=== PATIENT | female | born 1930 | race Caucasian/White ===

== ENCOUNTER 2016-11-18 19:33 | Inpatient (IN) | payer MEDICARE, BC ==
[2016-11-18] MEDS ORDERED: Morphine INJ* 2 MG/ML 1 ML CARPUJECT IV ONE (20:23)
--- NOTE | 2016-11-18 20:31 | ED ---
Nick Puckett Claudia, scribed for Stanley Yañez MD on 11/18/16 at 1952 . Lower Extremity - HPI Summary HPI Summary: 86 year old female presents to the ED with left lower leg pain post mechanical fall down 3-4 steps at about 19:00 this evening. Pt denies fever and chills. Pt notes the pain as a 8/10. - History of Current Complaint Chief Complaint: EDExtremityLower Stated Complaint: LT LEG PAIN Time Seen by Provider: 11/18/16 19:46 Hx Obtained From: Patient Mechanism Of Injury: Fall From Height Of: - 3 steps Onset of Pain: Immediate Onset/Duration: Still Present Pain Intensity: 8 Pain Scale Used: 0-10 Numeric Location: Is Discrete @ - left lower leg Associated Signs And Symptoms: Positive: Other - No left hip pain. Negative: Knee Pain Aggravating Factor(s): Ambulation, Weight Bearing - Allergies/Home Medications Allergies/Adverse Reactions: Allergies Allergy/AdvReac Type Severity Reaction Status Date / Time No Known Allergies Allergy Verified 11/18/16 19:35 PMH/Surg Hx/FS Hx/Imm Hx Previously Healthy: Yes Endocrine/Hematology History: Denies: Hx Diabetes Cardiovascular History: Reports: Hx Hypertension History: Denies: Hx Acute Renal Failure Infectious Disease History: No Infectious Disease History: Denies: Traveled Outside the [place] in Last 30 Days - Family History Known Family History: Negative: Hypertension, Diabetes - Social History Occupation: Employed Full-time Lives: With Family Substance Use Type: Reports: None Review of Systems Negative: Fever, Chills ENT: Negative Cardiovascular: Negative Respiratory: Negative Gastrointestinal: Negative Genitourinary: Negative Positive: Other - left lower leg pain Skin: Negative Neurological: Negative Psychological: Normal All Other Systems Reviewed And Are Negative: Yes Physical Exam Triage Information Reviewed: Yes Vital Signs On Initial Exam: Initial Vitals Temp Pulse Resp BP Pulse Ox 97.9 F 67 18 154/63 94 11/18/16 19:35 11/18/16 19:35 11/18/16 19:35 11/18/16 19:35 11/18/16 19:35 Vital Signs Reviewed: Yes Appearance: Positive: Well-Appearing, Pain Distress - mild discomfort Skin: Positive: Warm Head/Face: Positive: Normal Head/Face Inspection Eyes: Positive: LUBNA ENT: Positive: Hearing grossly normal Neck: Positive: Supple Respiratory/Lung Sounds: Positive: Breath Sounds Present Cardiovascular: Positive: Normal Abdomen Description: Positive: Nontender, Soft Bowel Sounds: Positive: Present Musculoskeletal: Positive: Other - swelling tender proximal left tib/fib Neurological: Positive: CN Intact II-III, NV Bundle Intact Distally Psychiatric: Positive: Normal Diagnostics - Vital Signs Vital Signs Temp Pulse Resp BP Pulse Ox 11/18/16 19:35 97.9 F 67 18 154/63 94 - Laboratory Lab Statement: Any lab studies that have been ordered have been reviewed, and results considered in the medical decision making process. - Radiology LOWER LEFT LEG XR Xray Interpretation: Positive (See Comments) - COMMINUTED NONARTICULAR FRACTURES OF THE PROXIMAL TIBIA AND FIBULA DESCRIBED. Radiology Interpretation Completed By: ED Physician, Radiologist CHEST XRAY Xray Interpretation: No Acute Changes - STIGMATA OF PROBABLE COPD, NO ACUTE CARDIOPULMONARY PROCESS EVIDENT. Radiology Interpretation Completed By: Radiologist Re-Evaluation - Re-Evaluation 1 Re-Evaluation Time: 20:35 Change: Improved Comment: Xray results are discussed with the patient. Lower Extremity Course/Dx - Course Assessment/Plan: Pt presents with left lower leg pain after a mechanical fall today. After pt lower extremity xray Dr. Mayer was consulted to see the pt. will admit the patient to [facility] and the patient is aggreable with admission. - Diagnoses Provider Diagnoses: Lower leg fracture - Physician Notifications Discussed Care of Patient With: Discussed care of patient with Dr. Mayer, whom will be in to see the patient and admit to [facility]. Time Discussed With Above Provider: 20:28 Instructed by Provider To: Admit As Inpatient Discharge - Discharge Plan Condition: Fair Disposition: ADMITTED TO [facility] documentation as recorded by the Nick berry Claudia accurately reflects the service I personally performed and the decisions made by , Stanley Yañez MD.
--- NOTE | 2016-11-18 20:51 | RAD ---
Indication: Preoperative assessment. LEFT lower leg fracture. Comparison: April 20, 2005 Technique: Upright AP 2037 hours Report: Elevated lung volumes and mild prominence of the interstitial markings. No alveolar consolidation, focal pulmonary lesion, pleural effusion, pneumothorax. The heart, pulmonary vasculature, and mediastinal contours are unremarkable. IMPRESSION: Stigmata of probable chronic obstructive pulmonary disease. No acute cardiopulmonary process evident.
--- NOTE | 2016-11-18 20:54 | RAD ---
Indication: Mechanical fall down multiple steps. LEFT leg pain. Comparison: None. Technique: AP and crosstable lateral views LEFT lower leg. Report: Comminuted spiral fracture at the proximal diaphysis of the tibia with 2 cortex widths lateral displacement, mild foreshortening, and mild apex anterior angulation. Comminuted fracture at the junction of the proximal metaphysis and proximal diaphysis of the fibula with one bone width anterior displacement and foreshortening. Overlying soft tissue swelling. Negative for subcutaneous emphysema. Vascular calcifications noted. IMPRESSION: Comminuted nonarticular fractures of the proximal tibia and fibula as described.
[2016-11-18] MEDS ORDERED: Acetaminophen TAB* 325 MG PO PRN (20:57)
[2016-11-18] MEDS ORDERED: Magnesium Hydroxide LIQ* 30 ML UDC PO PRN (21:19)
[2016-11-18 22:00] LABS: Hematocrit 38 % (35-47); Hemoglobin 12.8 g/dl (12.0-16.0); Mean Corpuscular HGB Conc 34 g/dl (31-36); Mean Corpuscular Hemoglobin 33 pg (27-31); Mean Corpuscular Volume 97 fL (80-97); Mean Platelet Volume 8 um3 (7.4-10.4); Red Cell Distribution Width 13 % (10.5-15); White Blood Count 9.9 10^3/ul (3.5-10.8)
[2016-11-18 22:16] LABS: Albumin 4.2 g/dL (3.2-5.2); Calcium 9.3 mg/dL (8.6-10.3); EGFR African American 87.1 (>60); EGFR Non-African American 67.7 (>60); Potassium 3.5 mmol/L (3.5-5.0); Total Bilirubin 0.4 mg/dL (0.2-1.0); Total Protein 7.2 g/dL (6.4-8.9)
[2016-11-18] MEDS: Docusate CAP* 100 MG PO SCH (22:54)
[2016-11-18] MEDS: Senna TAB PO SCH (22:55)
[2016-11-18] MEDS: Heparin VIAL(*) 5000 UNITS/ML VIAL (FIVE THOUSAND) SUBCUT SCH (23:15)
[2016-11-18] MEDS: HYDROcodone/ACETAMIN 5-325 MG* 1 TAB PO PRN (23:15)
[2016-11-18] MEDS ORDERED: Cyclobenzaprine TAB* 10 MG PO PRN (23:33)
[2016-11-18] MEDS ORDERED: Cyclobenzaprine TAB* 10 MG ONE (23:43)
--- NOTE | 2016-11-19 01:19 | HP ---
HISTORY AND PHYSICAL: DATE OF ADMISSION: 11/18/16 PRIMARY CARE PROVIDER: Marie Dean MD ATTENDING PHYSICIAN: Karen Kaiser MD* (this report is being dictated by Andres Foley NP) CONSULTING ORTHOPEDIC SURGEON: Gallito Mayer MD CHIEF COMPLAINT: 1. Fall. 2. Left leg lower extremity pain. HISTORY OF PRESENT ILLNESS: Mrs. De La O is an 86-year-old female patient. She has a history of hypertension, hyperlipidemia, and an undisclosed cardiac arrhythmia. She is unsure if it is atrial fibrillation or not. She comes into the ER today stating that she was walking down her carpeted stairs. She states she typically goes up and down the stairs 2 to 3 times a day without any problems. She has no chest pain or shortness of breath when she does this, but today she was walking down the stairs with a pair of socks, she lost her footing on the third step on the way down in which she fell and ended up landing on her left lower extremity. She immediately heard a pop. She did not hit her head. She had no loss of consciousness. No chest pain prior to or after the fall. She knew there were something wrong. She could not stand on the leg. She could not move it as it was extremity painful. Her is frail, uses a walker to ambulate and he could not help her get up and so, they called 911 and the patient was brought into the hospital. She denies any recent URI symptoms. No shortness of breath and no fevers. No nausea, vomiting , or diarrhea. She was evaluated in the ER. Ultimately it was found that she had a tibiofibular fracture that would require ORIF. Dr. Mayer and myself were asked to evaluate the patient for her admission. PAST MEDICAL HISTORY: Significant for: 1. Cardiac arrhythmia. 2. Hypertension. 3. Hyperlipidemia. PAST SURGICAL HISTORY: Significant for: 1. She has had a tonsillectomy. 2. Hysterectomy. HOME MEDICATIONS: Unknown at this point. She knows she is on 2 medications. Unfortunately, [facility] is close and unable to obtain the med list and I will do it first thing in the morning. ALLERGIES TO MEDICATIONS: There were no known drug allergies. FAMILY HISTORY: Mother had peripheral vascular disease. Father's history was unknown. SOCIAL HISTORY: She drinks occasionally. She does not smoke. She lives with her . Surrogate decision maker is her , Joaquín. REVIEW OF SYSTEMS: There is no documented fevers. She denied having any significant weight changes. There is no double vision. There is no ear discharge. She denies having any rhinorrhea. There is no sore throat. There is no thyroid enlargement. She denies having any chest pain. There is no orthopnea and no nocturnal dyspnea. There is no abdominal pain. No nausea. No vomiting. No dysuria. No frequency. No seizures. No loss of consciousness. No pruritus. No skin ulcerations. Review of 14 systems was completed, all others negative. PHYSICAL EXAMINATION GENERAL: At this time, Mrs. De La O is an 86-year-old female patient. She appears well-nourished, well-developed. She did not appear to be in any acute distress. VITAL SIGNS: Reveal a blood pressure of 154/63 with a pulse of 67, respirations 18, O2 sat 94%, and temperature of 97.9. HEENT: Head is atraumatic and normocephalic. Eyes; EOMs are intact. Sclerae anicteric and not pale. NECK: Supple. Throat: Oral mucosa appears to be moist. No oropharyngeal erythema. LUNGS: Clear to auscultation bilaterally. No wheezes, rales, or rhonchi. HEART: Heart sounds S1 and S2. Regular rate and rhythm. No murmurs, rubs, or gallops. ABDOMEN: Soft, flat, and nontender. Bowel sounds are present. EXTREMITIES: Pulses are 2+ throughout. Distal CSM checks are intact to the left lower extremity. She is able to move the upper extremity 5/5 strength. NEUROLOGIC: The patient is awake, alert, and oriented x3. Speech clear. Tongue was midline. No gross focal deficits. SKIN: Intact. DIAGNOSTIC STUDIES/LAB DATA: Labs today are pending. She did have a chest x-ray obtained today, which on my review did not appreciate any effusion or infiltrates. Radiology read it as stigmata of probable COPD. No acute process evident. She does have a lower extremity x- ray read as comminuted nonarticular fracture of the proximal tibia and fibula as described. Old medical records were reviewed. ASSESSMENT AND PLAN: Mrs. De La O is an 86-year-old female patient, coming into the ER today with mechanical fall, found to have a tib-fib fracture. He should be admitted under inpatient status for: 1. Tib-fib fracture: At this point, I will defer the management to Dr. Mayer and Team. In terms of perioperative risk stratification, she needs an EKG and chest x- ray. The chest x-ray is stable, but she needs an EKG and she will need to check her labs to see they are stable. Her RCRI is 0. I would like to get her medications list prior to the OR to make sure she is not on a beta- kendra. If she is on a beta-kendra then she needs it to the perioperative period, so we need that list and I would also like to make sure she is not on any blood thinners, but she states she is not. So, we will get the labs to make sure those are stable and make sure the EKG is stable. She does ambulate up to 2 to 3 times a day up to 12 stairs. So, if this is stable, she can proceed to the OR. I did order pain medications and she probably will need postoperatively, she may need some help at home as her is frail. She may need rehab, so I did place her on social work consult. 2. Hypertension: Again, we will continue meds when we know the list what she is on. Her blood pressure here is in the 150s. Should she get elevated over 180, we can give her p.r.n. hydralazine. 3. Hyperlipidemia: We will start her on her medications when we know the name. 4. DVT prophylaxis: We will go ahead and put her on heparin subcu. 7. Code status: She is full code. 8. Fluid, electrolyte, and nutrition: She can have a regular diet and she is n.p.o. after midnight. TIME SPENT: Time spent on the admission was 60 minutes; greater than half the time was spent [id number] with the patient obtaining my history and physical, the other half time is spent going over the plan of care with the patient and implementing plan of care. I discussed the plan of care with my attending, Dr. Kaiser; she is in agreement. ANDRES FOLEY NP CC: Dr. Dean; Gallito Mayer MD* [id number]/[facility] #: [id number] [facility] HOSPITALJimmy
[2016-11-19] MEDS: Ondansetron INJ* 2 MG/ML VIAL IV PRN (02:32)
[2016-11-19 06:15] LABS: Hematocrit 33 % (35-47); Hemoglobin 11.2 g/dl (12.0-16.0); Mean Corpuscular HGB Conc 34 g/dl (31-36); Mean Corpuscular Hemoglobin 33 pg (27-31); Mean Corpuscular Volume 96 fL (80-97); Mean Platelet Volume 7 um3 (7.4-10.4); Red Blood Count 3.42 10^6/ul (4.0-5.4); Red Cell Distribution Width 13 % (10.5-15); White Blood Count 9.3 10^3/ul (3.5-10.8)
[2016-11-19] MEDS: Heparin VIAL(*) 5000 UNITS/ML VIAL (FIVE THOUSAND) SUBCUT SCH ×2 (06:26→13:24)
[2016-11-19 06:33] LABS: BUN/Creatinine Ratio 23.1 (8-20); Calcium 8.7 mg/dL (8.6-10.3); EGFR African American 89.6 (>60); EGFR Non-African American 69.7 (>60); Potassium 3.9 mmol/L (3.5-5.0)
[2016-11-19] MEDS: Docusate CAP* 100 MG PO SCH ×2 (08:22→21:22)
[2016-11-19] MEDS ORDERED: Metoprolol Succinate XL TAB* 50 MG PO SCH (13:00)
[2016-11-19] MEDS ORDERED: ceFAZolin 2 GM PREMIX (*) 2 GM/50 ML BAG IVPB ONE (14:46)
[2016-11-19] MEDS ORDERED: fentaNYL* 50 MCG/ML 2 ML VIAL (100 MCG VIAL) ONE (14:58)
[2016-11-19] MEDS ORDERED: Bupivacaine 0.5% SDV PF* 30 ML VIAL ONE ×2 (14:58→17:07)
[2016-11-19] MEDS ORDERED: Midazolam* 1 MG/ML 5 ML VIAL (5 MG) ONE (14:58)
[2016-11-19] MEDS ORDERED: Phenylephrine IV* 40 MCG/ML 10 ML SYRINGE ONE (16:04)
[2016-11-19] MEDS ORDERED: EPHEDrine (Pressors)* 50 MG/ML VIAL ONE (16:17)
[2016-11-19] MEDS ORDERED: oxyCODONE TAB* 5 MG TAB PO PRN ×2 (16:30→17:54)
[2016-11-19] MEDS ORDERED: Ondansetron INJ* 2 MG/ML VIAL IV PRN (16:30)
[2016-11-19] MEDS ORDERED: fentaNYL* 50 MCG/ML 2 ML VIAL (100 MCG VIAL) IV PRN (16:30)
[2016-11-19] MEDS ORDERED: diPHENhydraMINE PO* 25 MG PO PRN (17:43)
[2016-11-19] MEDS ORDERED: Morphine INJ* 2 MG/ML 1 ML CARPUJECT IV PRN (17:47)
--- NOTE | 2016-11-19 17:54 | RAD ---
INDICATION: ORIF LEFT tibia fracture. COMPARISON: None. TECHNIQUE: 61.3 seconds. fluoroscopy. FINDINGS: Spot images document placement of an IM charlette across the diaphyseal fracture of the tibia with both proximal and distal locking screws. IMPRESSION: Procedural fluoroscopy. CPT II Codes: 6045F
--- NOTE | 2016-11-19 18:28 | PN ---
Subjective Date of Service: 11/19/16 Interval History: Patient seen and examined in PACU. Pt is still groggy after surgery. Has no complaints at this time. Family History: Unchanged from Admission Social History: Unchanged from Admission Past Medical History: Unchanged from Admission Objective Active Medications: Acetaminophen (Tylenol Tab*) 650 mg PO Q4H PRN Reason: FEVER/PAIN Acetaminophen/Hydrocodone Bitart ([place] 5-325 Tab*) 1 tab PO Q4H PRN Reason: PAIN Atorvastatin Calcium (Lipitor*) 20 mg PO 1700 SHAHRIAR Cyclobenzaprine HCl (Flexeril Tab*) 5 mg PO BID PRN Reason: SPASMS Diphenhydramine HCl (Benadryl Po*) 25 mg PO Q6H PRN Reason: itching Docusate Sodium (Colace Cap*) 100 mg PO BID SHAHRIAR Fentanyl Citrate (Fentanyl*) 25 mcg IV Q5M PRN Reason: PAIN - MODERATE Stop: 20:00 Heparin Sodium (Porcine) (Heparin Vial(*)) 5,000 units SUBCUT Q8HR [facility] Cefazolin Sodium/Dextrose (Kefzol 1 Gm In Dextrose Duplex (*)) 1 gm in 50 mls @ 200 mls/hr IVPB Q6H SHAHRIAR Stop: 11/20/16 09:14 Lactated Ringer's (Lactated Ringers 1000 Ml Bag*) 1,000 mls @ 100 mls/hr IV PER RATE [facility] Magnesium Hydroxide (Milk Of Magnesia Liq*) 30 ml PO Q6H PRN Reason: CONSTIPATION Metoprolol Succinate (Toprol Xl Tab*) 50 mg PO DAILY [facility] Morphine Sulfate (Morphine Inj (Syringe)*) 1 mg IV Q2H PRN Reason: PAIN - UNRELIEVED Multivitamins (Theragran Tab*) 1 tab PO DAILY [facility] Ondansetron HCl (Zofran Inj*) 4 mg IV Q6H PRN Reason: NAUSEA Ondansetron HCl (Zofran Inj*) 4 mg IV ONCE PRN Reason: NAUSEA/VOMITING Stop: 20:00 Oxycodone HCl (Roxycodone Tab*) 5 mg PO ONCE PRN Reason: PAIN - UNCONTROLLED Stop: 11/19/16 20:00 Oxycodone/Acetaminophen (Percocet 5/325 Tab*) 1 tab PO Q4H PRN Reason: PAIN - MODERATE Oxycodone/Acetaminophen (Percocet 5/325 Tab*) 2 tab PO Q4H PRN Reason: PAIN - SEVERE Senna (Senokot Tab*) 2 tab PO BEDTIME SHAHRIAR Vital Signs 11/18/16 11/18/16 11/18/16 22:32 22:57 23:15 Temperature 97.2 F Pulse Rate 69 Respiratory 18 18 20 Rate Blood Pressure 144/58 (mmHg) O2 Sat by Pulse 97 Oximetry 11/18/16 11/18/16 11/18/16 23:23 23:41 23:50 Temperature 97.2 F 98.0 F Pulse Rate 72 62 Respiratory 18 16 18 Rate Blood Pressure 144/58 126/43 (mmHg) O2 Sat by Pulse 94 96 Oximetry 11/19/16 11/19/16 11/19/16 01:15 01:50 03:23 Temperature 97.9 F Pulse Rate 70 Respiratory 16 18 16 Rate Blood Pressure 139/49 (mmHg) O2 Sat by Pulse 94 Oximetry 11/19/16 11/19/16 11/19/16 07:45 07:54 17:44 Temperature 98.2 F 97.7 F Pulse Rate 67 65 Respiratory 18 18 12 Rate Blood Pressure 139/53 120/41 (mmHg) O2 Sat by Pulse 96 100 Oximetry 11/19/16 11/19/16 11/19/16 17:50 17:55 18:00 Temperature Pulse Rate 58 58 58 Respiratory 13 14 12 Rate Blood Pressure 116/40 107/48 112/35 (mmHg) O2 Sat by Pulse 100 100 100 Oximetry 11/19/16 18:15 Temperature Pulse Rate 57 Respiratory 14 Rate Blood Pressure 107/38 (mmHg) O2 Sat by Pulse 100 Oximetry Oxygen Devices in Use Now: Nasal Cannula - 2L Appearance: NAD, laying in bed. Eyes: No Scleral Icterus, PERRLA Ears/Nose/Mouth/Throat: NL Teeth, Lips, Gums, Mucous Membranes Moist Neck: NL Appearance and Movements; NL JVP, Trachea Midline Respiratory: Symmetrical Chest Expansion and Respiratory Effort, Clear to Auscultation Cardiovascular: NL Sounds; No Murmurs; No JVD, RRR Abdominal: NL Sounds; No Tenderness; No Distention Extremities: No Edema Skin: No Rash or Ulcers, - - Splint to left LE clean, dry and intact. Neurological: Alert and Oriented x 3, NL Muscle Strength and Tone Lines/Tubes/Other Access: Clean, Dry and Intact Peripheral IV - site benign. Result Diagrams: 11/19/16 06:06 11/19/16 06:06 Assess/Plan/Problems-Billing Assessment: Ms. De La O is a 86 yo female with PMH significant for HTN, HLD, and a cardiac arrhythmia who presented to the emergency room after a fall and was found to have a left tib-fib fracture. - Patient Problems (1) Fracture of left tibia and fibula Code(s): S82.202A - UNSP FRACTURE OF SHAFT OF LEFT TIBIA, INIT FOR CLOS FX; S82.402A - UNSP FRACTURE OF SHAFT OF LEFT FIBULA, INIT FOR CLOS FX SNOMED Code (s): 71463005 Comment: S/P ORIF left tib-fib. Management per Ortho. Pain control. Awaiting PT eval in the AM. (2) HTN (hypertension) Code(s): I10 - ESSENTIAL (PRIMARY) HYPERTENSION SNOMED Code(s): 21165916 Comment: SBP low post-op. Will continue Metoprolol with hold parameters. Will continue to hold HCTZ for now. (3) HLD (hyperlipidemia) Code(s): E78.5 - HYPERLIPIDEMIA, UNSPECIFIED SNOMED Code(s): 03118160 Comment: Continue statin. (4) DVT prophylaxis Code(s): VUI1467 - SNOMED Code(s): 801842316 Comment: Continue Heparin SQ. (5) Full code status Code(s): Z78.9 - OTHER SPECIFIED HEALTH STATUS SNOMED Code(s): 839194512 Status and Disposition: Inpatient. Discharge when medically stable.
[2016-11-19] MEDS: Atorvastatin* 20 MG TAB PO SCH (20:51)
[2016-11-19] MEDS: ceFAZolin 1 GM in Dextrose (*) 1 GM/50 ML BAG IVPB SCH (20:57)
[2016-11-19] MEDS: Senna TAB PO SCH (21:18)
[2016-11-19] MEDS: oxyCODONE/Acetamin 5/325 MG* TAB PO PRN (23:17)
[2016-11-20] MEDS: ceFAZolin 1 GM in Dextrose (*) 1 GM/50 ML BAG IVPB SCH ×2 (02:28→09:34)
[2016-11-20] MEDS ORDERED: Heparin VIAL(*) 5000 UNITS/ML VIAL (FIVE THOUSAND) SUBCUT SCH (06:00)
[2016-11-20] MEDS: oxyCODONE/Acetamin 5/325 MG* TAB PO PRN ×4 (06:05→17:30)
[2016-11-20 07:37] LABS: Hematocrit 23 % (35-47); Hemoglobin 7.7 g/dl (12.0-16.0)
[2016-11-20 07:59] LABS: BUN/Creatinine Ratio 14.9 (8-20); Calcium 8.1 mg/dL (8.6-10.3); EGFR African American 106.8 (>60); EGFR Non-African American 83.1 (>60); Potassium 3.7 mmol/L (3.5-5.0)
[2016-11-20] MEDS: Docusate CAP* 100 MG PO SCH ×2 (09:35→21:24)
[2016-11-20] MEDS: Vitamin THERAPEUTIC TAB PO SCH (09:35)
[2016-11-20] MEDS: Metoprolol Succinate XL TAB* 50 MG PO SCH (09:36)
--- NOTE | 2016-11-20 13:22 | PN ---
Progress Note - Progress Note SOAP: Subjective: [86 y/o female s/p tibia ORIF with intramedullary charlette 11/19/[address] Torres. Patient denies pain, no N/V/ SOB, no lightheadedness. Eating without difficulty, no questions with regards to surgery. ] Objective: []GEneral- Well appearing, NAD A) MSK- SPlint, JONNATHAN wrap intact, no drianage noted, patient able to move toes, + sensation to light touch intact at toes Assessment: [[86 y/o female s/p tibia ORIF with intramedullary charlette 11/19/[address] Torres.] Vital Signs Temp 98.0 F 11/20/16 11:16 Pulse 67 11/20/16 11:16 Resp 18 11/20/16 11:35 BP 117/34 11/20/16 11:16 Pulse Ox 97 11/20/16 08:55 Intake & Output 11/19/16 11/20/16 11/20/16 18:59 06:59 18:59 Intake Total 4360 325 1407 Output Total 800 1955 Balance 3560 -1630 1407 Intake: IV Fluids 2900 1019 LR 2900 1019 IVPB 1400 55 148 LR 1400 cefazolin 55 148 Oral 60 270 240 Output: Urine 800 Perry 1955 Other: Date of Last Bowel 11/19/16 Movement # Bowel Movements 1 Estimated Stool Amount Medium Estimated Blood Loss 300 Comment Laboratory Results - last 24 hr 11/20/16 11/20/16 11/20/16 06:55 06:55 06:55 Hgb 7.7 L Hct 23 L INR (Anticoag Therapy) 0.95 Sodium 130 L Potassium 3.7 Chloride 96 L Carbon Dioxide 30 Anion Gap 4 BUN 10 Creatinine 0.67 Est GFR ( Amer) 106.8 Est GFR (Non-Af Amer) 83.1 BUN/Creatinine Ratio 14.9 Glucose 109 H Calcium 8.1 L Plan: [- Anemia- asymptomatic, follow up H&H over weekend - Continue PT- WBAT with cast shoe and walker - Likely placement at D/C DVT prophyl- Heparin in house, decreased todays dose due to anemia, restart tomorrow at 2500IU Q8 ]
--- NOTE | 2016-11-20 13:33 | PN ---
Subjective Date of Service: 11/20/16 Interval History: Patient seen and examined at bedside. Pt states that she is feeling well and that her pain is controlled. Pt feels that she will be able to manage at home with a walker and the assistive devices that she has in place at home. Family History: Unchanged from Admission Social History: Unchanged from Admission Past Medical History: Unchanged from Admission Objective Active Medications: Acetaminophen (Tylenol Tab*) 650 mg PO Q4H PRN Reason: FEVER/PAIN Acetaminophen/Hydrocodone Bitart ([place] 5-325 Tab*) 1 tab PO Q4H PRN Reason: PAIN Atorvastatin Calcium (Lipitor*) 20 mg PO 1700 SHAHRIAR Cyclobenzaprine HCl (Flexeril Tab*) 5 mg PO BID PRN Reason: SPASMS Diphenhydramine HCl (Benadryl Po*) 25 mg PO Q6H PRN Reason: itching Docusate Sodium (Colace Cap*) 100 mg PO BID SHAHRIAR Heparin Sodium (Porcine) (Heparin Vial(*)) 2,500 units SUBCUT Q8HR [facility] Magnesium Hydroxide (Milk Of Magnesia Liq*) 30 ml PO Q6H PRN Reason: CONSTIPATION Metoprolol Succinate (Toprol Xl Tab*) 50 mg PO DAILY [facility] Morphine Sulfate (Morphine Inj (Syringe)*) 1 mg IV Q2H PRN Reason: PAIN - UNRELIEVED Multivitamins (Theragran Tab*) 1 tab PO DAILY [facility] Ondansetron HCl (Zofran Inj*) 4 mg IV Q6H PRN Reason: NAUSEA Oxycodone/Acetaminophen (Percocet 5/325 Tab*) 1 tab PO Q4H PRN Reason: PAIN - MODERATE Oxycodone/Acetaminophen (Percocet 5/325 Tab*) 2 tab PO Q4H PRN Reason: PAIN - SEVERE Senna (Senokot Tab*) 2 tab PO BEDTIME [facility] Vital Signs 11/19/16 11/19/16 11/19/16 17:44 17:50 17:55 Temperature 97.7 F Pulse Rate 65 58 58 Respiratory 12 13 14 Rate Blood Pressure 120/41 116/40 107/48 (mmHg) O2 Sat by Pulse 100 100 100 Oximetry 11/19/16 11/19/16 11/19/16 18:00 18:15 18:25 Temperature Pulse Rate 58 57 Respiratory 12 14 Rate Blood Pressure 112/35 107/38 (mmHg) O2 Sat by Pulse 100 100 100 Oximetry 11/19/16 11/19/16 11/19/16 18:31 18:44 18:58 Temperature Pulse Rate 60 66 65 Respiratory 16 12 13 Rate Blood Pressure 103/40 117/35 114/52 (mmHg) O2 Sat by Pulse 100 100 100 Oximetry 11/19/16 11/19/16 11/19/16 19:15 19:28 19:45 Temperature Pulse Rate 64 64 69 Respiratory 16 20 17 Rate Blood Pressure 124/45 129/46 140/48 (mmHg) O2 Sat by Pulse 94 94 97 Oximetry 11/19/16 11/19/16 11/19/16 20:05 20:45 21:46 Temperature 98.2 F 97.6 F Pulse Rate 71 79 82 Respiratory 20 18 18 Rate Blood Pressure 126/46 124/53 138/46 (mmHg) O2 Sat by Pulse 97 90 100 Oximetry 11/19/16 11/19/16 11/20/16 22:45 23:17 00:41 Temperature 98.0 F 98.1 F Pulse Rate 81 73 Respiratory 16 18 16 Rate Blood Pressure 124/48 111/41 (mmHg) O2 Sat by Pulse 93 100 Oximetry 11/20/16 11/20/16 11/20/16 01:17 02:48 06:05 Temperature 97.6 F Pulse Rate 70 Respiratory 16 16 16 Rate Blood Pressure 114/46 (mmHg) O2 Sat by Pulse 98 Oximetry 11/20/16 11/20/16 11/20/16 07:18 07:20 08:05 Temperature 97.9 F Pulse Rate 67 Respiratory 17 18 20 Rate Blood Pressure 115/36 (mmHg) O2 Sat by Pulse 100 97 Oximetry 11/20/16 11/20/16 11/20/16 08:55 09:35 11:16 Temperature 98.0 F Pulse Rate 67 Respiratory 18 16 Rate Blood Pressure 117/34 (mmHg) O2 Sat by Pulse 97 Oximetry 11/20/16 11:35 Temperature Pulse Rate Respiratory 18 Rate Blood Pressure (mmHg) O2 Sat by Pulse Oximetry Oxygen Devices in Use Now: None Appearance: NAD, sitting up in a chair. Eyes: No Scleral Icterus, PERRLA Ears/Nose/Mouth/Throat: NL Teeth, Lips, Gums, Mucous Membranes Moist Neck: NL Appearance and Movements; NL JVP, Trachea Midline Respiratory: Symmetrical Chest Expansion and Respiratory Effort, Clear to Auscultation Cardiovascular: NL Sounds; No Murmurs; No JVD, RRR Abdominal: NL Sounds; No Tenderness; No Distention Extremities: No Edema Skin: - - Splint to left LE clean, dry and intact. Neurological: Alert and Oriented x 3, NL Muscle Strength and Tone Lines/Tubes/Other Access: Clean, Dry and Intact Peripheral IV - site benign. Nutrition: Taking PO's Result Diagrams: 11/20/16 06:55 11/20/16 06:55 Assess/Plan/Problems-Billing Assessment: Ms. De La O is a 86 yo female with PMH significant for HTN, HLD, and a cardiac arrhythmia who presented to the emergency room after a fall and was found to have a left tib-fib fracture. - Patient Problems (1) Fracture of left tibia and fibula Code(s): S82.202A - UNSP FRACTURE OF SHAFT OF LEFT TIBIA, INIT FOR CLOS FX; S82.402A - UNSP FRACTURE OF SHAFT OF LEFT FIBULA, INIT FOR CLOS FX SNOMED Code (s): 06486078 Comment: S/P ORIF left tib-fib, POD #1. Management per Ortho. Pain control. Continue PT/OT. (2) HTN (hypertension) Code(s): I10 - ESSENTIAL (PRIMARY) HYPERTENSION SNOMED Code(s): 88987037 Comment: SBP improving, but continues to be 110's. Continue Metoprolol with hold parameters. Will continue to hold HCTZ for now. (3) HLD (hyperlipidemia) Code(s): E78.5 - HYPERLIPIDEMIA, UNSPECIFIED SNOMED Code(s): 23549021 Comment: Continue statin. (4) DVT prophylaxis Code(s): BPR8666 - SNOMED Code(s): 041288109 Comment: Continue Heparin SQ. (5) Full code status Code(s): Z78.9 - OTHER SPECIFIED HEALTH STATUS SNOMED Code(s): 344659669 Status and Disposition: Inpatient. Discharge when medically stable.
[2016-11-20] MEDS: Heparin VIAL(*) 5000 UNITS/ML VIAL (FIVE THOUSAND) SUBCUT SCH ×2 (13:44→21:24)
--- NOTE | 2016-11-20 15:49 | OP ---
DATE OF OPERATION: 11/19/16 - ROOM #450 DATE OF : [birth year] SURGICAL CARE: Left leg. SURGEON: Fabrizio Torres MD ROADMASTER: ADE Chacon ANESTHESIOLOGIST: Poornima Arnold MD ANESTHESIA: Spinal with IV sedation. PRE-OP DIAGNOSIS: Fracture, left tibia and fibular shafts. POST-OP DIAGNOSIS: Fracture, left tibia and fibular shafts. OPERATIVE PROCEDURE: Left tibia reduction and internal fixation with a Synthes intramedullary tibial nail, interlocked. INDICATIONS: Unstable fracture of the left tibial shaft. COMPLICATIONS: There were no complications. DRAINS: There were no drains. CONDITION: Stable to the recovery room. BLOOD LOSS: 200 mL of replacement crystalloid fluids. DESCRIPTION OF PROCEDURE: The patient was brought to the operating room and placed on the operating table in the supine position. She was put in the seated position for administration of spinal anesthetic and she was returned to the supine position. The left leg splint was carefully removed. The pulses were not palpable, and I did Doppler and the posterior tibial pulse with normal Doppler signal and the dorsalis pedis pulse on the left was not elicitable. The left distal thigh, knee, leg, ankle, and foot were given a preliminary chlorhexidine prep and then a final ChloraPrep for the surgical care. The leg was prepped and draped free in the usual fashion for surgical care of the knee and the leg. The toes were sealed off completely with Ioban drape wrapped around the mid foot, extending beyond the toes and sealing them off. We did our universal protocol time- out confirming Ewa Wasmuth and the plan for left tibial charlette and we all agreed and we proceeded. The skin incision was made medial, parapatellar dividing the skin and subcu down to the deep fascia. The deep fascia was opened just on the medial side of the patellar tendon. The patellar tendon was retracted laterally exposing the proximal tibia, proximal to the tibial tubercle. The guidewire with awl was inserted into the proximal tibia and both were pointing somewhat lateral, this was adjusted and the guidewire was then extended down the tibia, across the fracture site, and into the distal tibia under fluoroscopic control. It was checked on AP and lateral views. Reaming was then done size 8 through size 10.5 and a size 9 tibial nail 300 mm in length was inserted into position. Position was accepted and the reduction was accepted with some distraction, excellent length, and rotation was felt to be normal. The two proximal transverse interlocking screws were inserted from medial to lateral, checked on fluoroscopy, and then distally, we inserted one screw also medial to lateral transverse. The surgeries were then irrigated with saline. All the final reduction, position of the nail, at the knee, ankle, and at the fracture site, final films were obtained, and the wounds were irrigated with saline irrigation solution. The knee wound and the deep fascia closed with interrupted #1 in 0 fashion, figure-of-8 fashion, superficial subcu closed with 2-0 Polysorb and the skin closed with mychal. On the proximal interlocking screw, we used mychal and a couple of sutures for closure and careful hemostasis was achieved throughout the case with electrocautery. The leg was washed, dried, and the surgery was covered with Betadine-soaked release, followed by sterile gauze, and sterile Webril. At the knee, we applied a cryotherapy cuff and on the leg, we did loose 4-inch Webril, posterior 5-inch, fiberglass splint was applied and held with an Socrates bandage and the ankle held at a neutral position. The patient was returned to the recovery room in stable and satisfactory condition, having tolerated the procedure very well. The SaO2 monitor in the recovery room showed Sao2 of 100 and the patient was stable. Procedure well tolerated. [id number]/CPS #: [id number] ENDY
[2016-11-20 17:26] LABS: Hematocrit 25 % (35-47); Hemoglobin 8.4 g/dl (12.0-16.0)
[2016-11-20] MEDS: Atorvastatin* 20 MG TAB PO SCH (17:30)
[2016-11-20] MEDS: Ondansetron INJ* 2 MG/ML VIAL IV PRN (18:13)
[2016-11-20] MEDS: Senna TAB PO SCH (21:24)
[2016-11-21] MEDS: oxyCODONE/Acetamin 5/325 MG* TAB PO PRN (00:08)
--- NOTE | 2016-11-21 08:27 | PN ---
Progress Note - Progress Note SOAP: Subjective: [86 yo female s/p R tibia IM charlette 11/19/16 Dr. Torres. Reports minimal pain at rest. Able to place very light weight on L LE with walker and cast shoe. Slept. Denies N/V, SOB, dizziness.] Objective: [A and O X 3, NAD L LE - Splint, dressing cast shoe in place. No drainage noted. Sensation in toes to light touch, able to wiggle toes. Vital Signs: Temp Pulse Resp BP Pulse Ox 98.3 F 84 17 131/47 93 11/21/16 07:30 11/21/16 07:30 11/21/16 07:30 11/21/16 07:30 11/21/16 07:30 Laboratory Results - last 24 hr 11/20/16 11/21/16 17:18 06:48 Hgb 8.4 L Hct 25 L INR (Anticoag Therapy) 0.87 L ] Assessment: [86 you female s/p L tibia IM rodding POD #2] Plan: [Con't. PT/OT Monitor H/H DVT prophylaxis with heparin Awaiting placement]
[2016-11-21] MEDS ORDERED: HYDROcodone/ACETAMIN 5-325 MG* 1 TAB PO PRN (09:00)
[2016-11-21] MEDS ORDERED: HYDROcodone/ACETAMIN 5-325 MG* 1 TAB ONE (09:07)
[2016-11-21] MEDS: Heparin VIAL(*) 5000 UNITS/ML VIAL (FIVE THOUSAND) SUBCUT SCH ×3 (09:13→22:04)
[2016-11-21] MEDS: Ondansetron INJ* 2 MG/ML VIAL IV PRN ×2 (09:14→20:18)
[2016-11-21] MEDS: HYDROcodone/ACETAMIN 5-325 MG* 1 TAB PO PRN (09:15)
[2016-11-21] MEDS: Metoprolol Succinate XL TAB* 50 MG PO SCH (09:15)
[2016-11-21] MEDS: Vitamin THERAPEUTIC TAB PO SCH (09:19)
[2016-11-21] MEDS: Docusate CAP* 100 MG PO SCH ×2 (09:19→20:18)
[2016-11-21 10:26] LABS: Hematocrit 24 % (35-47)
--- NOTE | 2016-11-21 16:00 | PN ---
Subjective Date of Service: 11/21/16 Interval History: Pt is feeling ok. She has been feeling quite queasy all day. Mostly when she gets up to move. She denies any pain at this time. Objective Active Medications: Acetaminophen (Tylenol Tab*) 975 mg PO Q6H [facility] Atorvastatin Calcium (Lipitor*) 20 mg PO 1700 [facility] Last Admin: 11/20/16 17:30 Dose: 20 mg Cyclobenzaprine HCl (Flexeril Tab*) 5 mg PO BID PRN PRN Reason: SPASMS Diphenhydramine HCl (Benadryl Po*) 25 mg PO Q6H PRN PRN Reason: itching Docusate Sodium (Colace Cap*) 100 mg PO BID [facility] Last Admin: 11/21/16 09:19 Dose: Not Given Heparin Sodium (Porcine) (Heparin Vial(*)) 2,500 units SUBCUT Q8HR [facility] Last Admin: 11/21/16 14:14 Dose: 2,500 units Magnesium Hydroxide (Milk Of Magnesia Liq*) 30 ml PO Q6H PRN PRN Reason: CONSTIPATION Metoprolol Succinate (Toprol Xl Tab*) 50 mg PO DAILY [facility] Last Admin: 11/21/16 09:15 Dose: 50 mg Morphine Sulfate (Morphine Inj (Syringe)*) 1 mg IV Q2H PRN PRN Reason: PAIN - UNRELIEVED Multivitamins (Theragran Tab*) 1 tab PO DAILY [facility] Last Admin: 11/21/16 09:19 Dose: Not Given Ondansetron HCl (Zofran Inj*) 4 mg IV Q6H PRN PRN Reason: NAUSEA Last Admin: 11/21/16 09:14 Dose: 4 mg Senna (Senokot Tab*) 2 tab PO BEDTIME [facility] Last Admin: 11/20/16 21:24 Dose: 2 tab Vital Signs 11/20/16 11/20/16 11/20/16 16:00 17:30 19:30 Temperature Pulse Rate Respiratory 18 16 Rate Blood Pressure (mmHg) O2 Sat by Pulse 97 Oximetry 11/20/16 11/20/16 11/21/16 19:35 19:42 00:08 Temperature 97.7 F Pulse Rate 63 Respiratory 16 16 16 Rate Blood Pressure 112/34 (mmHg) O2 Sat by Pulse 100 Oximetry 11/21/16 11/21/16 11/21/16 01:54 02:11 05:36 Temperature 98.0 F 98.2 F Pulse Rate 91 88 Respiratory 16 16 Rate Blood Pressure 137/51 133/41 (mmHg) O2 Sat by Pulse 97 93 96 Oximetry 11/21/16 11/21/16 11/21/16 07:30 08:30 09:15 Temperature 98.3 F Pulse Rate 84 Respiratory 17 16 16 Rate Blood Pressure 131/47 (mmHg) O2 Sat by Pulse 93 Oximetry 11/21/16 11/21/16 11:15 11:43 Temperature 98.3 F Pulse Rate 88 Respiratory 16 15 Rate Blood Pressure 139/53 (mmHg) O2 Sat by Pulse 98 Oximetry Oxygen Devices in Use Now: None Appearance: Elderly female sitting up in bed, NAD Eyes: No Scleral Icterus Ears/Nose/Mouth/Throat: Mucous Membranes Moist Respiratory: Symmetrical Chest Expansion and Respiratory Effort, Clear to Auscultation Cardiovascular: NL Sounds; No Murmurs; No JVD, RRR, No Edema Abdominal: NL Sounds; No Tenderness; No Distention Extremities: No Clubbing, Cyanosis, - - L LE in surigcal dressing Skin: No Rash or Ulcers, No Nodules or Sclerosis Neurological: Alert and Oriented x 3 Result Diagrams: 11/21/16 10:21 11/20/16 06:55 Assess/Plan/Problems-Billing Ms. De La O is a 86 yo female with PMHx significant for HTN, HLD, and a cardiac arrhythmia who presented to the emergency room after a fall and was found to have a left tib-fib fracture. - Patient Problems (1) Fracture of left tibia and fibula Current Visit: Yes Status: Acute Code(s): S82.202A - UNSP FRACTURE OF SHAFT OF LEFT TIBIA, INIT FOR CLOS FX; S82.402A - UNSP FRACTURE OF SHAFT OF LEFT FIBULA, INIT FOR CLOS FX SNOMED Code(s): 86448678 Comment: S/P ORIF left tib-fib, POD #2. Likely plan is for PMRU tomorrow. Management per Ortho. Pain control-will try tylenol alone as she has been very nauseous likely from the percocet/norco. Continue PT/OT. (2) HTN (hypertension) Current Visit: Yes Status: Chronic Code(s): I10 - ESSENTIAL (PRIMARY) HYPERTENSION SNOMED Code(s): 09006896 Comment: BP is well controlled on the current regimen. Continue to monitor. (3) HLD (hyperlipidemia) Current Visit: Yes Status: Acute Code(s): E78.5 - HYPERLIPIDEMIA, UNSPECIFIED SNOMED Code(s): 61349664 Comment: Continue statin. (4) DVT prophylaxis Current Visit: Yes Status: Acute Code(s): AAJ1113 - SNOMED Code(s): 499125318 Comment: SQ heparin (5) Full code status Current Visit: Yes Status: Acute Code(s): Z78.9 - OTHER SPECIFIED HEALTH STATUS SNOMED Code(s): 654303612 Status and Disposition: Possibly to PMRU tomorrow.
[2016-11-21] MEDS: Atorvastatin* 20 MG TAB PO SCH (17:02)
[2016-11-21] MEDS ORDERED: Metoprolol Tartrate IV* 1 MG/ML 5 ML VIAL IV ONE (18:44)
[2016-11-21] MEDS ORDERED: NS 0.9% 1000 ML* 1,000 ML IV SCH (18:45)
[2016-11-21] MEDS ORDERED: Metoprolol Tartrate IV* 1 MG/ML 5 ML VIAL ONE (18:48)
--- NOTE | 2016-11-21 19:06 | PN ---
Progress Note - Progress Note Note: Cross cover note: Responded to CAT call for Ms. De La O When returning from bathroom was noted to be LH. A chair was brought over and she sat down without any loss of consciousness. Vitals indicated HR in the 120s. She was brought back to bed and EKG performed notable for afib new since admission although notably has history of a cardiac arrhythmia. Suspect afib is etiology of LH. Pt reported feeling better after recumbent in bed. Checking BMP and serum magnesium, as well as troponin and CBC for current H/H Started normal saline at 150cc/hr for 1 liter Received 5mg Iv metoprolol push with improvement in HR to 100-110s but remained in afib Will transfer to telemetry for continued monitoring. Plan on additional metorpol of BP will tolerate otherwise diltiazem without titration.
[2016-11-21] MEDS ORDERED: Metoprolol Tartrate IV* 1 MG/ML 5 ML VIAL IV PRN (19:15)
[2016-11-21 19:39] LABS: Hematocrit 23 % (35-47); Hemoglobin 7.5 g/dl (12.0-16.0); Mean Corpuscular HGB Conc 33 g/dl (31-36); Mean Corpuscular Hemoglobin 33 pg (27-31); Mean Corpuscular Volume 98 fL (80-97); Mean Platelet Volume 9 um3 (7.4-10.4); Red Blood Count 2.29 10^6/ul (4.0-5.4); Red Cell Distribution Width 13 % (10.5-15); White Blood Count 8.4 10^3/ul (3.5-10.8)
[2016-11-21 19:50] LABS: BUN/Creatinine Ratio 11.4 (8-20); Calcium 8.5 mg/dL (8.6-10.3); EGFR African American 101.6 (>60); Magnesium 1.7 mg/dL (1.9-2.7); Potassium 3.5 mmol/L (3.5-5.0)
[2016-11-21 19:53] LABS: Troponin I 0.02 ng/mL (<0.04)
[2016-11-21] MEDS: Acetaminophen TAB* 325 MG PO SCH (20:18)
[2016-11-21] MEDS: Senna TAB PO SCH (20:18)
[2016-11-21] MEDS ORDERED: Potassium Chlor TAB* 20 MEQ TAB.ER PO ONE (21:03)
[2016-11-21] MEDS ORDERED: Magnesium Sulfate 2 GM IV* 2 GM/50 ML BAG IVPB ONE (21:03)
[2016-11-22] MEDS: Acetaminophen TAB* 325 MG PO SCH ×4 (02:04→21:33)
[2016-11-22 05:16] LABS: Hematocrit 25 % (35-47); Hemoglobin 8.3 g/dl (12.0-16.0); Mean Corpuscular HGB Conc 34 g/dl (31-36); Mean Corpuscular Hemoglobin 31 pg (27-31); Mean Corpuscular Volume 93 fL (80-97); Mean Platelet Volume 9 um3 (7.4-10.4); Red Blood Count 2.66 10^6/ul (4.0-5.4); Red Cell Distribution Width 16 % (10.5-15); White Blood Count 7.2 10^3/ul (3.5-10.8)
[2016-11-22 05:33] LABS: BUN/Creatinine Ratio 14.5 (8-20); Calcium 8.2 mg/dL (8.6-10.3); EGFR African American 103.3 (>60); EGFR Non-African American 80.3 (>60); Potassium 4.1 mmol/L (3.5-5.0)
[2016-11-22] MEDS: Heparin VIAL(*) 5000 UNITS/ML VIAL (FIVE THOUSAND) SUBCUT SCH ×3 (06:01→21:47)
[2016-11-22] MEDS: Docusate CAP* 100 MG PO SCH ×2 (08:42→21:46)
[2016-11-22] MEDS: Vitamin THERAPEUTIC TAB PO SCH (08:42)
[2016-11-22] MEDS: Metoprolol Succinate XL TAB* 50 MG PO SCH (08:42)
--- NOTE | 2016-11-22 09:59 | PN ---
Subjective Date of Service: 11/22/16 Interval History: Pt is feeling fine this AM. Last evening's events are noted. She felt very lightheaded during this event but now feels back to baseline. She tells me she has a h/o atrial fibrillation-her last episode of afib was in 06/2016. Objective Active Medications: Acetaminophen (Tylenol Tab*) 975 mg PO Q6H [facility] Last Admin: 11/22/16 08:42 Dose: 975 mg Atorvastatin Calcium (Lipitor*) 20 mg PO 1700 [facility] Last Admin: 11/21/16 17:02 Dose: 20 mg Cyclobenzaprine HCl (Flexeril Tab*) 5 mg PO BID PRN PRN Reason: SPASMS Last Admin: 11/22/16 02:04 Dose: 5 mg Diphenhydramine HCl (Benadryl Po*) 25 mg PO Q6H PRN PRN Reason: itching Docusate Sodium (Colace Cap*) 100 mg PO BID [facility] Last Admin: 11/22/16 08:42 Dose: 100 mg Heparin Sodium (Porcine) (Heparin Vial(*)) 2,500 units SUBCUT Q8HR [facility] Last Admin: 11/22/16 06:01 Dose: 2,500 units Magnesium Hydroxide (Milk Of Magnesia Liq*) 30 ml PO Q6H PRN PRN Reason: CONSTIPATION Metoprolol Succinate (Toprol Xl Tab*) 50 mg PO DAILY [facility] Last Admin: 11/22/16 08:42 Dose: 50 mg Metoprolol Tartrate (Lopressor Iv*) 5 mg IV Q6H PRN PRN Reason: HEART RATE/PULSE Morphine Sulfate (Morphine Inj (Syringe)*) 1 mg IV Q2H PRN PRN Reason: PAIN - UNRELIEVED Multivitamins (Theragran Tab*) 1 tab PO DAILY [facility] Last Admin: 11/22/16 08:42 Dose: 1 tab Ondansetron HCl (Zofran Inj*) 4 mg IV Q6H PRN PRN Reason: NAUSEA Last Admin: 11/21/16 20:18 Dose: 4 mg Senna (Senokot Tab*) 2 tab PO BEDTIME [facility] Last Admin: 11/21/16 20:18 Dose: 2 tab Vital Signs 11/21/16 11/21/16 11/21/16 11:15 11:43 15:33 Temperature 98.3 F 98.2 F Pulse Rate 88 73 Respiratory 16 15 12 Rate Blood Pressure 139/53 126/41 (mmHg) O2 Sat by Pulse 98 Oximetry 11/21/16 11/21/16 11/21/16 19:50 20:00 23:36 Temperature 98.5 F 97.2 F Pulse Rate 97 87 Respiratory 18 18 18 Rate Blood Pressure 102/45 101/41 (mmHg) O2 Sat by Pulse 97 100 Oximetry 11/22/16 11/22/16 11/22/16 00:00 00:08 02:04 Temperature 97.9 F Pulse Rate 84 Respiratory 18 18 Rate Blood Pressure 100/34 (mmHg) O2 Sat by Pulse 100 Oximetry 11/22/16 11/22/16 11/22/16 02:47 04:04 07:22 Temperature 97.4 F 98.0 F Pulse Rate 80 71 Respiratory 18 16 16 Rate Blood Pressure 105/35 119/42 (mmHg) O2 Sat by Pulse 99 97 Oximetry 11/22/16 08:00 Temperature Pulse Rate Respiratory 16 Rate Blood Pressure (mmHg) O2 Sat by Pulse Oximetry Oxygen Devices in Use Now: None Appearance: Elderly female sitting in a chair, NAD Eyes: No Scleral Icterus Ears/Nose/Mouth/Throat: Mucous Membranes Moist Respiratory: Symmetrical Chest Expansion and Respiratory Effort, Clear to Auscultation Cardiovascular: NL Sounds; No Murmurs; No JVD, RRR, No Edema Abdominal: NL Sounds; No Tenderness; No Distention Extremities: No Clubbing, Cyanosis Skin: No Rash or Ulcers, No Nodules or Sclerosis Neurological: Alert and Oriented x 3 Result Diagrams: 11/22/16 05:01 11/22/16 05:01 Assess/Plan/Problems-Billing Ms. De La O is a 86 yo female with PMHx significant for HTN, HLD, and a cardiac arrhythmia who presented to the emergency room after a fall and was found to have a left tib-fib fracture. - Patient Problems (1) Fracture of left tibia and fibula Current Visit: Yes Status: Acute Code(s): S82.202A - UNSP FRACTURE OF SHAFT OF LEFT TIBIA, INIT FOR CLOS FX; S82.402A - UNSP FRACTURE OF SHAFT OF LEFT FIBULA, INIT FOR CLOS FX SNOMED Code(s): 29281920 Comment: S/P ORIF left tib-fib, POD #3. Management per Ortho. Pain control- continue tylenol alone as she has been very nauseous likely from the percocet/ norco. Continue PT/OT. (2) HTN (hypertension) Current Visit: Yes Status: Chronic Code(s): I10 - ESSENTIAL (PRIMARY) HYPERTENSION SNOMED Code(s): 93078928 Comment: BP is well controlled on the current regimen. Continue to monitor. (3) HLD (hyperlipidemia) Current Visit: Yes Status: Acute Code(s): E78.5 - HYPERLIPIDEMIA, UNSPECIFIED SNOMED Code(s): 60357254 Comment: Continue statin. (4) DVT prophylaxis Current Visit: Yes Status: Acute Code(s): EDG4072 - SNOMED Code(s): 650423267 Comment: SQ heparin (5) Full code status Current Visit: Yes Status: Acute Code(s): Z78.9 - OTHER SPECIFIED HEALTH STATUS SNOMED Code(s): 789406295 Status and Disposition: Possibly to PMRU tomorrow.
--- NOTE | 2016-11-22 10:10 | PN ---
Progress Note - Progress Note SOAP: Subjective: [Pt reports feeling fairly well after being transferred to tele yesterday afternoon for afib. Denies pain L LE at rest. Denies dizziness, lightheadedness. Has con't to be OOB to BR. ] Objective: [A and O x 3, NAD. Sitting comfortably in chair. R LE - splint dressing, in place, clean and dry. Cast shoe on. Sensation in toes to light touch, able to wiggle toes. Vital Signs: Temp Pulse Resp BP Pulse Ox 98.0 F 71 16 119/42 97 11/22/16 07:22 11/22/16 07:22 11/22/16 08:00 11/22/16 07:22 11/22/16 07:22 Laboratory Results - last 24 hr 11/21/16 11/21/16 11/21/16 10:21 19:00 19:00 WBC 8.4 RBC 2.29 L Hgb 8.0 L 7.5 L Hct 24 L 23 L MCV 98 H MCH 33 H MCHC 33 RDW 13 Plt Count 138 L MPV 9 Neut % (Auto) 78.6 Lymph % (Auto) 10.9 L [place] % (Auto) 9.8 H Eos % (Auto) 0.4 Baso % (Auto) 0.3 Absolute Neuts (auto) 6.6 Absolute Lymphs (auto) 0.9 L Absolute Monos (auto) 0.8 Absolute Eos (auto) 0 Absolute Basos (auto) 0 Absolute Nucleated RBC 0 Nucleated RBC % 0 Sodium 124 L Potassium 3.5 Chloride 101 Carbon Dioxide 26 Anion Gap -3 L BUN 8 Creatinine 0.70 Est GFR ( Amer) 101.6 Est GFR (Non-Af Amer) 79.0 BUN/Creatinine Ratio 11.4 Glucose 150 H Calcium 8.5 L Magnesium 1.7 L Troponin I 0.02 Blood Type Antibody Screen Crossmatch 11/21/16 11/22/16 11/22/16 19:00 05:01 05:01 WBC 7.2 RBC 2.66 L Hgb 8.3 L Hct 25 L MCV 93 MCH 31 MCHC 34 RDW 16 H Plt Count 124 L MPV 9 Neut % (Auto) 76.0 Lymph % (Auto) 10.9 L [place] % (Auto) 12.2 H Eos % (Auto) 0.6 Baso % (Auto) 0.3 Absolute Neuts (auto) 5.5 Absolute Lymphs (auto) 0.8 L Absolute Monos (auto) 0.9 H Absolute Eos (auto) 0 Absolute Basos (auto) 0 Absolute Nucleated RBC 0 Nucleated RBC % 0 Sodium 130 L Potassium 4.1 Chloride 99 L Carbon Dioxide 27 Anion Gap 4 BUN 10 Creatinine 0.69 Est GFR ( Amer) 103.3 Est GFR (Non-Af Amer) 80.3 BUN/Creatinine Ratio 14.5 Glucose 124 H Calcium 8.2 L Magnesium Troponin I Blood Type A Positive Antibody Screen Negative Crossmatch See Detail ] Assessment: [86 yo female s/p R tibia IM charlette POD #3 Afib yesterday] Plan: [Con't PT/OT] DVT prophylaxis with heparin Medicine following
[2016-11-22 11:10] LABS: Hematocrit 26 % (35-47); Hemoglobin 8.6 g/dl (12.0-16.0)
[2016-11-22] MEDS: Ondansetron INJ* 2 MG/ML VIAL IV PRN ×2 (16:34→22:58)
[2016-11-22] MEDS: Atorvastatin* 20 MG TAB PO SCH (16:34)
[2016-11-22] MEDS: Senna TAB PO SCH (21:47)
[2016-11-23] MEDS: Acetaminophen TAB* 325 MG PO SCH ×2 (04:42→09:06)
[2016-11-23] MEDS: Heparin VIAL(*) 5000 UNITS/ML VIAL (FIVE THOUSAND) SUBCUT SCH (05:23)
[2016-11-23 06:46] LABS: Hematocrit 23 % (35-47); Hemoglobin 7.8 g/dl (12.0-16.0); Mean Corpuscular HGB Conc 34 g/dl (31-36); Mean Corpuscular Hemoglobin 32 pg (27-31); Mean Corpuscular Volume 93 fL (80-97); Mean Platelet Volume 8 um3 (7.4-10.4); Red Blood Count 2.43 10^6/ul (4.0-5.4); Red Cell Distribution Width 17 % (10.5-15); White Blood Count 6.8 10^3/ul (3.5-10.8)
[2016-11-23] MEDS: Metoprolol Succinate XL TAB* 50 MG PO SCH (09:07)
[2016-11-23] MEDS: Docusate CAP* 100 MG PO SCH (09:07)
[2016-11-23] MEDS: Vitamin THERAPEUTIC TAB PO SCH (09:08)
--- NOTE | 2016-11-23 11:32 | PN ---
Subjective Date of Service: 11/23/16 Interval History: Pt is feeling well. No pain in the R LE. No SOB. Objective Active Medications: Acetaminophen (Tylenol Tab*) 975 mg PO Q6H [facility] Last Admin: 11/23/16 09:06 Dose: 975 mg Atorvastatin Calcium (Lipitor*) 20 mg PO 1700 [facility] Last Admin: 11/22/16 16:34 Dose: 20 mg Cyclobenzaprine HCl (Flexeril Tab*) 5 mg PO BID PRN PRN Reason: SPASMS Last Admin: 11/22/16 02:04 Dose: 5 mg Docusate Sodium (Colace Cap*) 100 mg PO BID [facility] Last Admin: 11/23/16 09:07 Dose: Not Given Heparin Sodium (Porcine) (Heparin Vial(*)) 2,500 units SUBCUT Q8HR [facility] Last Admin: 11/23/16 05:23 Dose: 2,500 units Metoprolol Succinate (Toprol Xl Tab*) 50 mg PO DAILY [facility] Last Admin: 11/23/16 09:07 Dose: 50 mg Multivitamins (Theragran Tab*) 1 tab PO DAILY [facility] Last Admin: 11/23/16 09:08 Dose: 1 tab Ondansetron HCl (Zofran Inj*) 4 mg IV Q6H PRN PRN Reason: NAUSEA Last Admin: 11/22/16 22:58 Dose: 4 mg Senna (Senokot Tab*) 2 tab PO BEDTIME [facility] Last Admin: 11/22/16 21:47 Dose: Not Given Vital Signs 11/22/16 11/22/16 11/22/16 11:38 15:24 19:46 Temperature 97.5 F 97.3 F 97.8 F Pulse Rate 76 70 79 Respiratory 20 18 18 Rate Blood Pressure 130/40 129/45 147/51 (mmHg) O2 Sat by Pulse 97 98 100 Oximetry 11/22/16 11/23/16 11/23/16 20:00 00:15 04:45 Temperature 97.7 F Pulse Rate 81 Respiratory 18 18 18 Rate Blood Pressure 121/46 (mmHg) O2 Sat by Pulse 98 Oximetry 11/23/16 11/23/16 11/23/16 04:59 07:53 09:17 Temperature 98.6 F 99.7 F 97.8 F Pulse Rate 84 80 Respiratory 16 16 Rate Blood Pressure 135/53 130/45 (mmHg) O2 Sat by Pulse 97 99 Oximetry 11/23/16 10:50 Temperature Pulse Rate Respiratory 16 Rate Blood Pressure (mmHg) O2 Sat by Pulse Oximetry Oxygen Devices in Use Now: None Appearance: Elderly female sitting in a chair, NAD Eyes: No Scleral Icterus Ears/Nose/Mouth/Throat: Mucous Membranes Moist Respiratory: Symmetrical Chest Expansion and Respiratory Effort, Clear to Auscultation Cardiovascular: NL Sounds; No Murmurs; No JVD, RRR, No Edema Abdominal: NL Sounds; No Tenderness; No Distention Extremities: No Clubbing, Cyanosis Skin: No Rash or Ulcers, No Nodules or Sclerosis Neurological: Alert and Oriented x 3 Result Diagrams: 11/23/16 06:16 11/22/16 05:01 Assess/Plan/Problems-Billing Ms. De La O is a 86 yo female with PMHx significant for HTN, HLD, and a cardiac arrhythmia who presented to the emergency room after a fall and was found to have a left tib-fib fracture. - Patient Problems (1) Fracture of left tibia and fibula Current Visit: Yes Status: Acute Code(s): S82.202A - UNSP FRACTURE OF SHAFT OF LEFT TIBIA, INIT FOR CLOS FX; S82.402A - UNSP FRACTURE OF SHAFT OF LEFT FIBULA, INIT FOR CLOS FX SNOMED Code(s): 33342119 Comment: S/P ORIF left tib-fib, POD #4. Plan for PMRU today. Doing well on tylenol alone for pain control. (2) HTN (hypertension) Current Visit: Yes Status: Chronic Code(s): I10 - ESSENTIAL (PRIMARY) HYPERTENSION SNOMED Code(s): 27304086 Comment: BP is well controlled on the current regimen. I have held her HCTZ going forward, however if she becomes hypertensive can add this back. Continue to monitor. (3) HLD (hyperlipidemia) Current Visit: Yes Status: Acute Code(s): E78.5 - HYPERLIPIDEMIA, UNSPECIFIED SNOMED Code(s): 87393114 Comment: Continue statin. (4) DVT prophylaxis Current Visit: Yes Status: Acute Code(s): GJT3457 - SNOMED Code(s): 109786110 Comment: SQ heparin (5) Full code status Current Visit: Yes Status: Acute Code(s): Z78.9 - OTHER SPECIFIED HEALTH STATUS SNOMED Code(s): 300224070 Status and Disposition: PMRU today
[2016-11-23 13:25] VITALS: BP 148/53
--- NOTE | 2016-11-24 16:10 | DS ---
DISCHARGE SUMMARY: DATE OF ADMISSION: 11/18/16 DATE OF DISCHARGE TO [facility]: 11/23/16 PRIMARY CARE PROVIDER: Dr. Dean PRINCIPAL DIAGNOSES: 1. Left tibia/fibula fracture status post mechanical fall. 2. Episode of atrial fibrillation - self-resolved. 3. Hypertension. 4. Hyperlipidemia. DISCHARGE MEDICATIONS: 1. Metoprolol XL 50 mg p.o. daily. 2. Lipitor 20 mg p.o. q.h.s. 3. Multivitamin 1 tab p.o. daily. 4. Senna 2 tabs p.o. q.h.s. 5. Colace 100 mg p.o. b.i.d. 6. Flexeril 5 mg p.o. b.i.d. p.r.n. spasm. 7. Tylenol 975 mg p.o. q.6 hours standing. HOSPITAL COURSE: Ms. De La O is an 86-year-old female who presented to the emergency room on 11/18/16 after sustaining a fall while walking down her carpeted stairs. She was unable to stand immediately following her fall. Her called 911 and the patient was brought to the hospital where she was found to have a left tibia and fibula fracture. The patient ultimately was taken to the operating room by Dr. Torres on 11/19/16 where he performed left tibia reduction and internal fixation with Synthes intramedullary tibial nail interlocked. The patient was transferred following surgery to the surgical floor. She did quite well after surgery and was actually contemplating going home; however, after much consideration, she decided to go to [facility] after a bed was offered. Of note, on the evening of 11/21/16 at approximately 7 p.m., the patient began to feel lightheaded. At that time, CAT call was placed. Dr. Curran evaluated the patient and found her heart rate to be rapid and irregular. She was found to be in atrial fibrillation. When discussing this with the patient, she states that she has a history of this and has not been on anticoagulation for this in the past. She states she is very aware of when she goes into atrial fibrillation. The patient received a dose of IV metoprolol and electrolyte supplementation. She was also transferred to telemetry floor. The patient broke into sinus rhythm on her own. Of note, when CAT call was placed, lab work was also drawn and her hemoglobin was found to be low at 7.5. This was lower than she had been. She did develop acute blood loss anemia with her surgery and fracture. One unit of packed red blood cells was transfused. The patient's H and H improved; however, on the day of discharge, her hemoglobin is back down to 7.8. The patient should have a followup hemoglobin on 11/25/16 to ensure that she is not dropping any further. FOLLOWUP CONCERNS: The patient is being discharged to [facility] today, 11/23/16. ACTIVITY LEVEL: As tolerated. DIET: Regular. CONDITION ON DISCHARGE: Stable. TIME SPENT: Thirty-five minutes was spent discharging this patient. CC: Dr. Dean * [id number]/[facility] #: [id number] MTDJimmy
== END 2016-11-23 13:49 | DRG 493 ==
LOC: ED 19:33 → SSU 21:28 → MEDTELE 11-21 20:00
PROVIDERS: ADMIT Pediatrics; ATTEND Hospitalist
PROC: 30233N1 Transfusion of Nonautologous Red Blood Cells into Peripheral Vein, Percutaneous Approach (ICD-10-PCS; principal; 2016-11-18)
PROC: 0QSH06Z Reposition Left Tibia with Intramedullary Internal Fixation Device, Open Approach (ICD-10-PCS; 2016-11-18)
DX: S82.192A Other fracture of upper end of left tibia, initial encounter for closed fracture (principal); D62 Acute posthemorrhagic anemia; I48.91 Unspecified atrial fibrillation; I10 Essential (primary) hypertension; E78.5 Hyperlipidemia, unspecified; S82.452A Displaced comminuted fracture of shaft of left fibula, initial encounter for closed fracture; W10.9XXA Fall (on) (from) unspecified stairs and steps, initial encounter; Y93.01 Activity, walking, marching and hiking; Y92.9 Unspecified place or not applicable; J45.909 Unspecified asthma, uncomplicated
CPT/HCPCS: 36415; 71010; 80048; 80053; 83735; 84484; 85014; 85018; 85025; 85027; 85610; 86850; 86900; 86901; 86922; 93005; 94760; 99284; A9270-GY; C1713; C1776; J0690; J1644; J2250; J2270; J2405; J3010; J3475; J3490; P9040

== ENCOUNTER 2016-11-23 10:36 | Inpatient (IN) | payer MEDICARE, BC ==
[2016-11-23] MEDS ORDERED: Magnesium Hydroxide LIQ* 30 ML UDC PO PRN (15:30)
[2016-11-23] MEDS ORDERED: Bisacodyl SUPP* 10 MG SUPP PR PRN (15:30)
[2016-11-23] MEDS: Acetaminophen TAB* 325 MG PO PRN (17:08)
[2016-11-23] MEDS: Atorvastatin* 20 MG TAB PO SCH (17:09)
--- NOTE | 2016-11-23 21:31 | HP ---
ADMISSION HISTORY AND PHYSICAL: DATE OF ADMISSION: 11/23/16 REASON FOR ADMISSION: Left tibial/fibular fracture. HISTORY OF ILLNESS: Ewa De La O is an 86-year-old female. She has a medical history, which is significant for hypertension, hyperlipidemia, and may have had bouts of atrial fibrillation in the past. The patient says she was walking down her basement stairs on 11/18/16 when she slipped on the rug and landed 3 steps lower on the ground. She had immediate pain in her left leg and was unable to stand up. She called her , who was upstairs. He was able to get to a phone and called 911. The patient was brought to the hospital. X- rays were done, which showed a left tibial fibular fracture. The patient was seen by Dr. Torres. He took her to the operating room on 11/19/16 and underwent a left tibial rodding. Postoperatively, the patient had a CAT team called on 05/01 at 6:30 in the evening. She was dizzy and near syncopal coming back from the bathroom. She was started on normal saline bolus and given IV metoprolol and transferred to the unit. She had CBC, troponin, chemistry ordered. She was found to be in AFib. She was given one dose of IV metoprolol and converted to sinus rhythm. She was monitored in the intensive care unit and seemed to be stable. She was not anticoagulated. She was felt to have physical therapy and occupational therapy needs. She is now being admitted for inpatient rehab so that she might return to independent living. PAST MEDICAL HISTORY: Significant for the aforementioned atrial fibrillation, hypertension, hyperlipidemia, and what appears to be paroxysmal atrial fibrillation. CURRENT MEDICATIONS: Include: 1. Toprol-XL. 2. She is on Lipitor. 3. Hydrochlorothiazide. ALLERGIES: No known drug allergies. SOCIAL HISTORY: She is a nonsmoker. She does drink a glass of wine every night. She lives with her in a two-coral house in [place]. Her uses a walker. They have somebody to come and clean the house once every 3 weeks. REVIEW OF SYSTEMS: The patient reports no current shortness of breath or chest pain. PHYSICAL EXAMINATION VITAL SIGNS: The patient's temperature is 97.5, blood pressure is 149/44, pulse 85, and respirations 16. HEENT: Her extraocular movements are intact. Tongue is midline. NECK: Supple. LUNGS: Sound clear to auscultation bilaterally. HEART: Sounds regular. S1 and S2 are audible. ABDOMEN: Soft and nontender. EXTREMITIES: Her left leg is in a cast. She can wiggle her toes on her left foot. Her peripheral pulses are intact otherwise. NEUROLOGIC: She is awake, alert, and oriented. Muscle strength 5/5 except the left leg, which is 3/5 secondary to pain. FUNCTIONAL EXAM: She transfers with minimal amount of assistance. ASSESSMENT: Left tibial fibular fracture. PLAN: Integrate her into a comprehensive and therapeutic rehab program with the following goals: 1. Physical Therapy will work with the patient. They are going to work on functional transfer training and ambulation training with a walker. 2. Occupational Therapy will see the patient and work on her activities of daily living including toileting and toilet transfers. 3. Heparin for DVT prophylaxis. 4. Adequate analgesia. 5. Her bowels will be regulated. 6. For her acute blood loss anemia, we will follow hemoglobin and hematocrit, transfuse if necessary. 7. Family training as appropriate. 8. Social Service will be closely involved to make sure that any services and equipment that the patient requires are in place prior to discharge. 9. Advanced directives: The patient is a full code. She does not have any advance directives. 10. Home with appropriate services. ESTIMATED LENGTH OF STAY: One week. [id number]/CPS #: [id number] MTDD
[2016-11-23] MEDS: Senna TAB PO SCH (22:11)
[2016-11-23] MEDS: Docusate CAP* 100 MG PO SCH (22:11)
[2016-11-23] MEDS: Heparin VIAL(*) 5000 UNITS/ML VIAL (FIVE THOUSAND) SUBCUT SCH (22:12)
[2016-11-24] MEDS: Acetaminophen TAB* 325 MG PO PRN ×3 (00:01→20:52)
[2016-11-24 08:13] LABS: Hematocrit 23 % (35-47); Hemoglobin 7.7 g/dl (12.0-16.0); Mean Corpuscular HGB Conc 33 g/dl (31-36); Mean Corpuscular Hemoglobin 32 pg (27-31); Mean Corpuscular Volume 95 fL (80-97); Mean Platelet Volume 8 um3 (7.4-10.4); Red Blood Count 2.45 10^6/ul (4.0-5.4); Red Cell Distribution Width 17 % (10.5-15); White Blood Count 5.5 10^3/ul (3.5-10.8)
[2016-11-24] MEDS: Metoprolol Succinate XL TAB* 50 MG PO SCH (08:51)
[2016-11-24] MEDS: Docusate CAP* 100 MG PO SCH ×2 (08:51→20:52)
[2016-11-24] MEDS: Hydrochlorothiazide TAB* 25 MG PO SCH (08:51)
[2016-11-24] MEDS: Heparin VIAL(*) 5000 UNITS/ML VIAL (FIVE THOUSAND) SUBCUT SCH ×2 (08:52→20:52)
--- NOTE | 2016-11-24 12:52 | PMRUTEAM ---
PMRU: Goals Current Status: Nursing: Current Status Skin Deviations [bilateral Bruise arms] Skin Deviations [Left Leg] Other Skin Deviations [Coccyx] Other Skin Deviation Description [ Cast intact Left Leg] Skin Deviation Description [ redness Coccyx] Physical Therapy: Current Status Bed Mobility Assistance Min Assist Transfer Moblility Assistance Supervision/CG Ambulation Assistance Supervisio Ambulation Assistive Devices Rolling Walker Stairs Assistance Not Tested Stairs Recommended Devices Two Rails Number of Stairs 3 Rec Therapy: Current Status Summary of Assessment and RT assessment complete and pt. is aware of Clinical Impression services. Pt. was open to continued leisure visits and requested magazines for enjoyment which will be provided to her. Treatment Goals Pt. will engage in leisure activities while on the unit. Treatment Plan Provide RT services and encourage involvement. Social Work: Current Status Discharge Plan return home with home care svs and family support Potential for Family Training TBD Anticipated Discharge Home Destination Discharge With VNS and family support OCCUPATIONAL THERAPY: Min Assist LB dressing, Upper body supervision, Grooming set up, toilet transfers supervision/CG, toileting supervision Goals: Physical Therapy: Updated Goals Transfer/Bed Mobility Rolling Walker Recommended Devices Social Work: Goals Discharge Plan return home with home care svs and family support Potential for Family Training TBD Anticipated Discharge Home Destination Discharge With VNS and family support Care Plan: Care Plan Cardiovascular- Improve/Maintain Start: 11/24/16 00:21 Freq: DAILY Status: Active Target: Activity Type Activity Date Activity User E-Sign Co-Sign Detail Recorded Client Recorded Date Recorded By Document 11/24/16 00:22 [id number] 11/24/16 00:25 [id number] 11/24/16 00:22 PMRU Outcome: Cardiovascular Vital Signs q Shift for 48hrs Then BID Yes Daily Weight Ordered No Current Cardiovascular Outcome/Goal Free of Abnormal Cardiac Symptoms Other Cardiovascular Outcome/Goal h/o a. fib Progression Toward Outcome/Goal Progressing DVT Prophylaxis- Improve/Maintain Start: 11/24/16 00:21 Freq: DAILY Status: Active Target: Activity Type Activity Date Activity User E-Sign Co-Sign Detail Recorded Client Recorded Date Recorded By Document 11/24/16 00:22 [id number] 11/24/16 00:25 [id number] 11/24/16 00:22 PMRU Outcome: DVT Prophylaxis Outcome/Goals Remains Free of DVT Complies with DVT Prophylaxis /Treatment TEDS Stockings on Every AM, Off at HS Progression Toward Outcome/Goals Progressing Education-Improve/Maintain Start: 11/24/16 00:21 Freq: DAILY Status: Active Target: Activity Type Activity Date Activity User E-Sign Co-Sign Detail Recorded Client Recorded Date Recorded By Document 11/24/16 00:22 [id number] 11/24/16 00:25 [id number] 11/24/16 00:22 PMRU Outcome: Education Outcome/Goals Demonstrate/ Verbalize Understanding of Written Discharge Instructions Demonstrates Skills Encourage Questions Progression Toward Outcome/Goals Progressing /GI-Improve/Maintain Start: 11/24/16 00:21 Freq: DAILY Status: Active Target: Activity Type Activity Date Activity User E-Sign Co-Sign Detail Recorded Client Recorded Date Recorded By Document 11/24/16 00: [id number] 11/24/16 00:25 [id number] 11/24/16 00:22 PMRU Outcome: Genitourinary/ Gastrointestinal Genitourinary- Outcome/Goals Remain Free of Hospital- Acquired UTI Gastrointestinal-Outcome/Goals Maintain/ Achieve Bowel Regularity in Accordance with Pt's Baseline Remain Free of Emesis Prevent Constipation Laxatives as Ordered Progression Toward Outcome/Goals - Progressing Progression Toward Outcome/Goals - GI Progressing Medication Administration Start: 11/24/16 00:21 Freq: DAILY Status: Active Target: Activity Type Activity Date Activity User E-Sign Co-Sign Detail Recorded Client Recorded Date Recorded By Document 11/24/16 00:22 [id number] 11/24/16 00:25 [id number] 11/24/16 00:22 PMRU Outcome: Medication Administration Assess Patient Knowledge/Teach Med Yes Education for all Meds Outcome/Goals Patient Independent with Medication Administration at Home Demonstrates Understanding Progression Towards Outcome/Goals Progressing Is Patient Going Home on Lovenox? No Pain/Comfort- Improve/Maintain Start: 11/24/16 00:21 Freq: DAILY Status: Active Target: Activity Type Activity Date Activity User E-Sign Co-Sign Detail Recorded Client Recorded Date Recorded By Document 11/24/16 00: [id number] 11/24/16 00:25 [id number] 11/24/16 00:22 PMRU Outcome: Pain/Comfort Outcome/Goals Demonstrates Knowledge and Use of Available Comfort Measures Achieves Acceptable Comfort/Pain Level as Determined by Patient/Condit Maintain Comfort Level Allowing Patient to Fully Participate in Rehab Progression Toward Outcome/Goals Progressing Respiratory - Improve/Maintain Start: 11/24/16 00:21 Freq: DAILY Status: Active Target: Activity Type Activity Date Activity User E-Sign Co-Sign Detail Recorded Client Recorded Date Recorded By Document 11/24/16 00:22 [id number] 11/24/16 00:25 [id number] 11/24/16 00:22 PMRU Outcome: Respiratory Does Patient Have a Trach No Outcome/Goals Prevent Pneumonia/ Atelectasis Progression Toward Outcome/Goals Progressing Safety- Improve/Maintain Start: 11/24/16 00:21 Freq: DAILY Status: Active Target: Activity Type Activity Date Activity User E-Sign Co-Sign Detail Recorded Client Recorded Date Recorded By Document 11/24/16 00:22 [id number] 11/24/16 00:25 [id number] 11/24/16 00:22 PMRU Outcome: Safety Outcome/Goals Remain Free of Injury or Harm Cooperates with Safety Measures for Least Restrictive Environment Prevent Falls/ Injury Progression Toward Outcome/Goals Progressing Skin- Improve/Maintain Start: 11/24/16 00:21 Freq: DAILY Status: Active Target: Activity Type Activity Date Activity User E-Sign Co-Sign Detail Recorded Client Recorded Date Recorded By Document 11/24/16 00:22 [id number] 11/24/16 00:25 [id number] 11/24/16 00:22 PMRU Outcome: Skin Skin Risk Level Medium Skin Orders Dressing Change Dressing Change Comments knee immobilizer and ortho boot on Outcome/Goals Maintain/ Improve Skin Intergrity Free from Decubitus Surgical Incisions Healing Progression Toward Outcome/Goals Progressing Medicine Note: Length of Stay: 3 days Anticipated Discharge Destination: Home Tentative Discharge Date: 11/27/16 Discharged to: Home
[2016-11-24] MEDS: traMADol TAB* 50 MG PO PRN (13:27)
[2016-11-24] MEDS: Atorvastatin* 20 MG TAB PO SCH (17:10)
[2016-11-24] MEDS: Senna TAB PO SCH (20:51)
[2016-11-25 05:50] LABS: Hematocrit 25 % (35-47); Hemoglobin 8.5 g/dl (12.0-16.0); Mean Corpuscular HGB Conc 34 g/dl (31-36); Mean Corpuscular Hemoglobin 32 pg (27-31); Mean Corpuscular Volume 94 fL (80-97); Mean Platelet Volume 7 um3 (7.4-10.4); Red Cell Distribution Width 16 % (10.5-15); White Blood Count 5.7 10^3/ul (3.5-10.8)
[2016-11-25 06:02] LABS: Albumin 3.1 g/dL (3.2-5.2); BUN/Creatinine Ratio 13.4 (8-20); Calcium 8.6 mg/dL (8.6-10.3); EGFR African American 106.8 (>60); EGFR Non-African American 83.1 (>60); Globulin 2.8 g/dL (2-4); Potassium 3.8 mmol/L (3.5-5.0); Total Bilirubin 0.8 mg/dL (0.2-1.0); Total Protein 5.9 g/dL (6.4-8.9)
[2016-11-25] MEDS: Hydrochlorothiazide TAB* 25 MG PO SCH (08:20)
[2016-11-25] MEDS: Metoprolol Succinate XL TAB* 50 MG PO SCH (08:21)
[2016-11-25] MEDS: Docusate CAP* 100 MG PO SCH ×2 (08:21→20:20)
[2016-11-25] MEDS: traMADol TAB* 50 MG PO PRN (08:21)
[2016-11-25] MEDS: Heparin VIAL(*) 5000 UNITS/ML VIAL (FIVE THOUSAND) SUBCUT SCH ×2 (08:22→20:20)
[2016-11-25] MEDS: Acetaminophen TAB* 325 MG PO PRN ×2 (13:05→20:19)
[2016-11-25] MEDS: Atorvastatin* 20 MG TAB PO SCH (17:18)
[2016-11-25] MEDS: Senna TAB PO SCH (20:19)
[2016-11-26] MEDS: traMADol TAB* 50 MG PO PRN ×3 (00:58→22:05)
[2016-11-26] MEDS: Docusate CAP* 100 MG PO SCH ×2 (08:32→21:01)
[2016-11-26] MEDS: Metoprolol Succinate XL TAB* 50 MG PO SCH (08:32)
[2016-11-26] MEDS: Hydrochlorothiazide TAB* 25 MG PO SCH (08:33)
[2016-11-26] MEDS: Heparin VIAL(*) 5000 UNITS/ML VIAL (FIVE THOUSAND) SUBCUT SCH ×2 (08:33→21:01)
[2016-11-26] MEDS: Acetaminophen TAB* 325 MG PO PRN (13:36)
[2016-11-26] MEDS: Atorvastatin* 20 MG TAB PO SCH (17:07)
[2016-11-26] MEDS: Senna TAB PO SCH (21:01)
[2016-11-27] MEDS: Acetaminophen TAB* 325 MG PO PRN ×2 (06:04→17:29)
[2016-11-27] MEDS: Docusate CAP* 100 MG PO SCH ×2 (08:17→21:14)
[2016-11-27] MEDS: Hydrochlorothiazide TAB* 25 MG PO SCH (08:17)
[2016-11-27] MEDS: Metoprolol Succinate XL TAB* 50 MG PO SCH (08:18)
[2016-11-27] MEDS: Heparin VIAL(*) 5000 UNITS/ML VIAL (FIVE THOUSAND) SUBCUT SCH ×2 (08:18→21:51)
[2016-11-27] MEDS: Atorvastatin* 20 MG TAB PO SCH (17:26)
[2016-11-27] MEDS: Senna TAB PO SCH (21:14)
[2016-11-27] MEDS: traMADol TAB* 50 MG PO PRN (21:16)
[2016-11-28] MEDS: Acetaminophen TAB* 325 MG PO PRN ×2 (03:05→09:09)
[2016-11-28 06:29] VITALS: BP 148/59
[2016-11-28] MEDS: Docusate CAP* 100 MG PO SCH (09:09)
[2016-11-28] MEDS: Metoprolol Succinate XL TAB* 50 MG PO SCH (09:09)
[2016-11-28] MEDS: Heparin VIAL(*) 5000 UNITS/ML VIAL (FIVE THOUSAND) SUBCUT SCH (09:10)
[2016-11-28] MEDS: Hydrochlorothiazide TAB* 25 MG PO SCH (09:10)
--- NOTE | 2016-11-29 03:04 | DS ---
CC: Dr. Dean; Dr. Torres REHABILITATION DISCHARGE SUMMARY: DATE OF ADMISSION: 11/23/16 DATE OF DISCHARGE: 11/28/16 REASON FOR PROVIDER: Dr. Dean. ORTHOPEDIC SURGEON: Dr. Torres. REASON FOR ADMISSION: Left tibia and fibula fractures. HISTORY OF PRESENT ILLNESS: For full details of her acute hospitalization leading up to her admission, please see the note dictated by Dr. Paz. Her postoperative stay was complicated by an episode of atrial fibrillation, which converted with IV metoprolol. HOSPITAL COURSE: During her time on the PMRU, she did have some nausea and vomiting. Besides Tylenol, her pain medicine was switched to tramadol, which she seemed to tolerate better. She has not had any vomiting in the last 3 days and is able to eat at least small meals. Her appetite overall is not great, but she is eating 3 meals. She has stayed on heparin for DVT prophylaxis, but will not be going home with that. She was seen by Orthopedics on the day of discharge. The dressing was removed and her mychal and sutures are intact and she appears to be healing appropriately. Recommendations were for the knee immobilizer that she has had on since her surgery to be taken off with home therapy, so that she can learn how to do daily knee range of motion and that as tolerated she can wean out of the knee immobilizer. In addition, she is to continue with weight bearing as tolerated precautions and follow up with Dr. Torres on 12/02/16 for staple and suture removal as well as followup x-rays. She participated well with physical therapy and at the time of discharge, is independent with bed mobility, transfers using a two-wheeled walker, ambulation of 250 feet using two-wheeled walker and climbing 10 stairs using 2 rails. She has a home exercise program with illustrated copy. She is to keep her splint and cast boot on until further instructed by Orthopedics and once again wean off the knee immobilizer with physical therapy. She also participated with occupational therapy and at the time of discharge is independent eating, modified independent with bathing, modified independent with dressing, modified independent with toileting and toilet transfers, and modified independent with light meal prep using a front wheel walker and tray. She will need assistance for any tasks in the basement such as the laundry. She has a [id number] who has been staying with her for assistance and will be also available along with the son this weekend. DISCHARGE CONDITION: Good. DISCHARGE DISPOSITION: Home with family support. DISCHARGE MEDICATIONS: 1. Tylenol 975 mg p.o. q.6 hours p.r.n. pain. 2. Atorvastatin 20 mg q.p.m. 3. Docusate 100 mg p.o. b.i.d. 4. Hydrochlorothiazide 12.5 mg p.o. daily. 5. Metoprolol XL 50 mg daily. 6. Senna 2 tablets q.h.s. 7. Tramadol 50 mg q.6 hours p.r.n. pain, maximum daily dose 3. DISCHARGE DIAGNOSES: 1. Left tibia fibula fracture status post intramedullary nail. 2. Paroxysmal atrial fibrillation. 3. Hypertension. 4. Hyperlipidemia. FOLLOWUP: 1. A referral has been sent to visiting nurse services for home care including nursing, physical therapy, and home health aide. 2. Follow up with Dr. Dean in 1 to 2 weeks. 3. Follow up with Dr. Torres on 12/02/16. They have been advised to call on to arrange that appointment. [id number]/[facility] #: [id number] MTDD
== END 2016-11-28 14:51 | disposition home health service (06) | DRG 560 ==
LOC: PMRU 13:48
PROVIDERS: ADMIT Physical Medicine & Rehabilitation; ATTEND Physical Medicine & Rehabilitation
PROC: F07Z5ZZ Bed Mobility Treatment (ICD-10-PCS; principal; 2016-11-23)
PROC: F07Z9FZ Gait Training/Functional Ambulation Treatment using Assistive, Adaptive, Supportive or Protective Equipment (ICD-10-PCS; 2016-11-23)
PROC: F07Z8ZZ Transfer Training Treatment (ICD-10-PCS; 2016-11-23)
PROC: F08Z0ZZ Bathing/Showering Techniques Treatment (ICD-10-PCS; 2016-11-23)
PROC: F08Z1ZZ Dressing Techniques Treatment (ICD-10-PCS; 2016-11-23)
DX: S82.192D Other fracture of upper end of left tibia, subsequent encounter for closed fracture with routine healing (principal); D62 Acute posthemorrhagic anemia; I48.0 Paroxysmal atrial fibrillation; I10 Essential (primary) hypertension; S82.452D Displaced comminuted fracture of shaft of left fibula, subsequent encounter for closed fracture with routine healing; W10.9XXD Fall (on) (from) unspecified stairs and steps, subsequent encounter; E78.5 Hyperlipidemia, unspecified; Z79.899 Other long term (current) drug therapy
CPT/HCPCS: 36415; 80053; 85025; 85027; A9270-GY; J1644

== ENCOUNTER 2016-12-02 15:44 | Emergency (ER) | payer MEDICARE, BC ==
[2016-12-02] MEDS ORDERED: Aspirin Low Dose CHEW TAB* 81 MG PO ONE (16:26)
[2016-12-02 16:46] LABS: Hematocrit 33 % (35-47); Hemoglobin 10.9 g/dl (12.0-16.0); Mean Corpuscular HGB Conc 33 g/dl (31-36); Mean Corpuscular Hemoglobin 31 pg (27-31); Mean Corpuscular Volume 94 fL (80-97); Mean Platelet Volume 7 um3 (7.4-10.4); Red Blood Count 3.48 10^6/ul (4.0-5.4); Red Cell Distribution Width 17 % (10.5-15); White Blood Count 6.6 10^3/ul (3.5-10.8)
--- NOTE | 2016-12-02 16:58 | RAD ---
Indication: Irregular heartbeat. Single frontal view of the chest performed at 1645 hours was reviewed. Comparison is made with previous exam dated 11/18/2016. No mediastinal shift is noted. Heart is of normal size and configuration. Lung ceballos appear clear. Lung ceballos appear hyperinflated. IMPRESSION: NO ACTIVE CARDIOPULMONARY DISEASE IS NOTED.
[2016-12-02 17:03] LABS: Troponin I 0.01 ng/mL (<0.04)
[2016-12-02 17:08] LABS: Albumin 3.7 g/dL (3.2-5.2); BUN/Creatinine Ratio 17.1 (8-20); Calcium 9.4 mg/dL (8.6-10.3); EGFR African American 92.4 (>60); EGFR Non-African American 71.8 (>60); Globulin 3.4 g/dL (2-4); Magnesium 1.9 mg/dL (1.9-2.7); Potassium 3.3 mmol/L (3.5-5.0); Total Protein 7.1 g/dL (6.4-8.9)
[2016-12-02 17:25] LABS: Urine Bilirubin Negative (Negative); Urine Glucose Negative (Negative); Urine Nitrite Negative (Negative)
[2016-12-02 17:27] LABS: TSH (Thyroid Stimulating Horm) 0.97 mcIU/mL (0.34-5.60)
[2016-12-02] MEDS ORDERED: Iohexol 350* (CONTRAST) 500 ML MDV IV ONE (17:43)
--- NOTE | 2016-12-02 18:48 | RAD ---
INDICATION: Weakness, near syncope. Arrhythmia. COMPARISON: December 02, 2016 chest radiograph. TECHNIQUE: Multidetector CT images were obtained from the lung apices to the upper abdomen with 59 mL Omnipaque 350 IV contrast. Pulmonary angiogram protocol. Multiplanar reformation including with maximum intensity projection. REPORT: Prominent intralobular septa and patchy bilateral groundglass opacities. Small calcified granuloma at the RIGHT upper lobe. Mild bilateral apical pleural parenchymal scarring. 5 mm groundglass opacity nodule at the apical posterior segment of the LEFT upper lobe reference image 15. Negative for pleural effusion or pneumothorax. Negative for thoracic lymphadenopathy. Mild cardiomegaly. Negative for pericardial effusion. Normal diameter thoracic aorta with mild atherosclerotic plaque. Negative for aortic dissection. Prominent central pulmonary arteries with peripheral attenuation. No filling defects are identified from the main to the subsegmental pulmonary arteries to indicate presence of a pulmonary embolism. Limited images through the upper abdomen are remarkable for grossly decompressed inferior vena cava indicating low volume state. Negative for suspicious osseous lesions. IMPRESSION: 1. Negative for pulmonary embolism. 2. Stigmata of chronic obstructive pulmonary disease and probable pulmonary arterial hypertension. 3. Noted 5 mm groundglass opacity at the apical posterior segment of the RIGHT upper lobe is relatively low suspicion based on small size. If clinically warranted taking into account comorbidities given advanced age consider reassessment with noncontrast CT in 6 months time. 4. Suggestion of low volume state. Correlate with clinical assessment.
--- NOTE | 2016-12-02 18:57 | ED ---
Luis Puckett Anna, scribed for Kenneth Michele MD on 12/02/16 at 1628 . Palpitations / Dysrhythmia - HPI Summary HPI Summary: Patient is an 86 y/o female coming to [facility] presenting with heart palpitations that began today during her physical therapy. The symptoms have since resolved. She also reports feeling SOB and dizziness earlier. She has back pain, leg pain , and knee pain at baseline. She was recently admitted with tibia and fibia fractures and then experienced an irregular heartbeat. She does not use blood thinners. - History of Current Complaint Chief Complaint: EDDysrhythmPalp Time Seen by Provider: 12/02/16 16:07 Hx Obtained From: Patient, Family/Motion Picture Camera Lens Technician - Allergy/Home Medications Allergies/Adverse Reactions: Allergies Allergy/AdvReac Type Severity Reaction Status Date / Time No Known Allergies Allergy Verified 11/18/16 19:35 PMH/Surg Hx/FS Hx/Imm Hx Endocrine/Hematology History: Denies: Hx Diabetes Cardiovascular History: Reports: Hx Hypertension Respiratory History: Denies: Hx Chronic Obstructive Pulmonary Disease (COPD) History: Denies: Hx Acute Renal Failure Musculoskeletal History: Denies: Hx Arthritis Sensory History: Reports: Hx Contacts or Glasses Denies: Hx Deafness Opthamlomology History: Reports: Hx Contacts or Glasses - Surgical History Surgery Procedure, Year, and Place: hysterectomy, Hx Anesthesia Reactions: No Infectious Disease History: No Infectious Disease History: Denies: Traveled Outside the [place] in Last 30 Days - Family History Known Family History: Negative: Hypertension, Diabetes - Social History Alcohol Use: Occasionally Substance Use Type: Reports: None Smoking Status (MU): Former Smoker Review of Systems Positive: Palpitations Positive: Shortness Of Breath Positive: Arthralgia - baseline, Myalgia - baseline Neurological: Other - dizziness All Other Systems Reviewed And Are Negative: Yes Physical Exam - Summary Physical Exam Summary: VITAL SIGNS: Reviewed. GENERAL: Patient is a well developed and nourished female who is lying comfortable in the stretcher. Patient is not in any acute respiratory distress. HEAD AND FACE: No signs of trauma. No ecchymosis, hematomas or skull depressions. No sinus tenderness. EYES: PERRLA, EOMI x 2, No injected conjunctiva, no nystagmus. EARS: Hearing grossly intact. Ear canals and tympanic membranes are within normal limits. MOUTH: Oropharynx within normal limits. NECK: Supple, trachea is midline, no adenopathy, no JVD, no carotid bruit, no c- spine tenderness, neck with full ROM. CHEST: Symmetric, no tenderness at palpation LUNGS: Clear to auscultation bilaterally. No wheezing or crackles. CVS: Regular rate and rhythm, S1 and S2 present, no murmurs or gallops appreciated. ABDOMEN: Soft, non-tender. No signs of distention. No rebound no guarding, and no masses palpated. Bowel sounds are normal. EXTREMITIES: LLE with a boot s/o surgery. NEURO: Alert and oriented x 3. No acute neurological deficits. Speech is normal and follows commands. SKIN: Dry and warm Triage Information Reviewed: Yes Vital Signs On Initial Exam: Initial Vitals Pulse Resp Pulse Ox 81 12 99 12/02/16 15:59 12/02/16 15:59 12/02/16 15:59 Vital Signs Reviewed: Yes Diagnostics - Vital Signs Vital Signs Temp Pulse Resp BP Pulse Ox 12/02/16 16:02 98.4 F 62 16 147/62 98 12/02/16 16:00 50 20 147/62 99 12/02/16 15:59 81 12 99 - Laboratory Lab Results: Lab Results 12/02/16 12/02/16 12/02/16 Range/Units 16:30 16:30 16:30 WBC 6.6 (3.5-10.8) 10^3/ul RBC 3.48 L (4.0-5.4) 10^6/ul Hgb 10.9 L (12.0-16.0) g/dl Hct 33 L (35-47) % MCV 94 (80-97) fL MCH 31 (27-31) pg MCHC 33 (31-36) g/dl RDW 17 H (10.5-15) % Plt Count 386 (150-450) 10^3/ul MPV 7 L (7.4-10.4) um3 Neut % (Auto) 77.1 (38-83) % Lymph % (Auto) 11.5 L (25-47) % Camas % (Auto) 9.8 H (1-9) % Eos % (Auto) 1.1 (0-6) % Baso % (Auto) 0.5 (0-2) % Absolute Neuts (auto) 5.1 (1.5-7.7) 10^3/ul Absolute Lymphs (auto) 0.8 L (1.0-4.8) 10^3/ul Absolute Monos (auto) 0.6 (0-0.8) 10^3/ul Absolute Eos (auto) 0.1 (0-0.6) 10^3/ul Absolute Basos (auto) 0 (0-0.2) 10^3/ul Absolute Nucleated RBC 0 10^3/ul Nucleated RBC % 0 Sodium 126 L (133-145) mmol/L Potassium 3.3 L (3.5-5.0) mmol/L Chloride 89 L (101-111) mmol/L Carbon Dioxide 30 (22-32) mmol/L Anion Gap 7 (2-11) mmol/L BUN 13 (6-24) mg/dL Creatinine 0.76 (0.51-0.95) mg/dL Est GFR ( Amer) 92.4 (>60) Est GFR (Non-Af Amer) 71.8 (>60) BUN/Creatinine Ratio 17.1 (8-20) Glucose 120 H (70-100) mg/dL Lactic Acid 1.3 (0.5-2.0) mmol/L Calcium 9.4 (8.6-10.3) mg/dL Magnesium 1.9 (1.9-2.7) mg/dL Total Bilirubin 1.00 (0.2-1.0) mg/dL AST 19 (13-39) U/L ALT 14 (7-52) U/L Alkaline Phosphatase 99 (34-104) U/L Troponin I 0.01 (<0.04) ng/mL B-Natriuretic Peptide ( - 100) pg/mL Total Protein 7.1 (6.4-8.9) g/dL Albumin 3.7 (3.2-5.2) g/dL Globulin 3.4 (2-4) g/dL Albumin/Globulin Ratio 1.1 (1-3) TSH Pending 12/02/16 Range/Units 16:30 WBC (3.5-10.8) 10^3/ul RBC (4.0-5.4) 10^6/ul Hgb (12.0-16.0) g/dl Hct (35-47) % MCV (80-97) fL MCH (27-31) pg MCHC (31-36) g/dl RDW (10.5-15) % Plt Count (150-450) 10^3/ul MPV (7.4-10.4) um3 Neut % (Auto) (38-83) % Lymph % (Auto) (25-47) % Camas % (Auto) (1-9) % Eos % (Auto) (0-6) % Baso % (Auto) (0-2) % Absolute Neuts (auto) (1.5-7.7) 10^3/ul Absolute Lymphs (auto) (1.0-4.8) 10^3/ul Absolute Monos (auto) (0-0.8) 10^3/ul Absolute Eos (auto) (0-0.6) 10^3/ul Absolute Basos (auto) (0-0.2) 10^3/ul Absolute Nucleated RBC 10^3/ul Nucleated RBC % Sodium (133-145) mmol/L Potassium (3.5-5.0) mmol/L Chloride (101-111) mmol/L Carbon Dioxide (22-32) mmol/L Anion Gap (2-11) mmol/L BUN (6-24) mg/dL Creatinine (0.51-0.95) mg/dL Est GFR ( Amer) (>60) Est GFR (Non-Af Amer) (>60) BUN/Creatinine Ratio (8-20) Glucose (70-100) mg/dL Lactic Acid (0.5-2.0) mmol/L Calcium (8.6-10.3) mg/dL Magnesium (1.9-2.7) mg/dL Total Bilirubin (0.2-1.0) mg/dL AST (13-39) U/L ALT (7-52) U/L Alkaline Phosphatase (34-104) U/L Troponin I (<0.04) ng/mL B-Natriuretic Peptide 160 H ( - 100) pg/mL Total Protein (6.4-8.9) g/dL Albumin (3.2-5.2) g/dL Globulin (2-4) g/dL Albumin/Globulin Ratio (1-3) TSH Result Diagrams: 12/02/16 16:30 12/02/16 16:30 Lab Statement: Any lab studies that have been ordered have been reviewed, and results considered in the medical decision making process. - Radiology CXR Xray Interpretation: No Acute Changes Radiology Interpretation Completed By: Radiologist - CT Chest CTA CT Interpretation: Positive (See Comments) CT Interpretation Completed By: Radiologist - IMPRESSION: 1. Negative for pulmonary embolism. 2. Stigmata of chronic obstructive pulmonary disease and probable pulmonary arterial hypertension. 3. Noted 5 mm groundglass opacity at the apical posterior segment of the RIGHT upper lobe is relatively low suspicion based on small size. If clinically warranted taking into account comorbidities given advanced age consider reassessment with noncontrast CT in 6 months time. 4. Suggestion of low volume state. Correlate with clinical assessment. - EKG 15:49 Cardiac Rate: NL - 81 bpm EKG Rhythm: Sinus Rhythm EKG Interpretation: No S/T elevation 17:05 Cardiac Rate: Bradycardia - 58 bpm EKG Rhythm: Sinus Bradycardia EKG Interpretation: No S/T elevation Course/Dx - Course Assessment/Plan: Patient is an 86 y/o female coming to [facility] presenting with heart palpitations that began today during her physical therapy. The symptoms have since resolved. She also reports feeling SOB and dizziness earlier. She has back pain, leg pain, and knee pain at baseline. She was recently admitted with tibia and fibula fractures and then experienced an irregular heartbeat. She does not use blood thinners. Blood work shows a normocytic normochromic anemia better than her baseline. Na 126, K 3.3. She was started in IV fluids and given KCL. CXR shows no active disease. EKG shows a normal sinus rhythm at 81 BPM. Repeat EKG show a sinus bradycardia at [address] impression: 1. Negative for pulmonary embolism. 2. Stigmata of chronic obstructive pulmonary disease and probable pulmonary arterial hypertension. 3. Noted 5 mm ground glass opacity at the apical posterior segment of the RIGHT upper lobe is relatively low suspicion based on small size. If clinically warranted taking into account comorbidities given advanced age consider reassessment with noncontrast CT in 6 months time. 4. Suggestion of low volume state. Correlate with clinical assessment. In re-assessment: patient reports she is feeling better and she has not have any other episodes of palpitations. I discussed all my findings and test results with the patient. Patient understands and agrees. Patient was instructed to return to the emergency room immediately if any of the symptoms return or worsens. Patient understands and agrees. Plan of care was discussed with the patient and patient understands and agrees with the plan of care. All questions were answered at patient satisfaction. There were no further complaints or concerns. Patient was instructed to follow up with primary care physician within 3 to 5 days. Patient is hemodynamically stable. Patient is alert and oriented x 3. No acute neurological deficits. - Diagnoses Differential Diagnosis/HQI/PQRI: Positive: Panic Disorder, Paroxymal SVT, V-Tach Provider Diagnoses: Palpitations, Arrhythmia Discharge - Discharge Plan Condition: Stable Disposition: HOME Patient Education Materials: Palpitations (ED) Referrals: Marie Dean MD [Primary Care Provider] - Additional Instructions: Follow up with primary care physician within 24 hours. Return to the emergency department for changing or worsening symptoms. The documentation as recorded by the Luis berry Anna accurately reflects the service I personally performed and the decisions made by Ryne dixon Walter, MD.
[2016-12-02 19:11] VITALS: BP 153/36
== END 2016-12-02 19:13 | disposition home or self-care (01) ==
LOC: ED 15:44
DX: R00.2 Palpitations (principal); I49.9 Cardiac arrhythmia, unspecified; R06.02 Shortness of breath; R42 Dizziness and giddiness; M54.9 Dorsalgia, unspecified; M79.606 Pain in leg, unspecified; M25.569 Pain in unspecified knee; Z87.891 Personal history of nicotine dependence
CPT/HCPCS: 36415; 71010; 71275; 80053; 81003; 83605; 83735; 83880; 84443; 84484; 85025; 85379; 93005; 99283; A9270-GY; Q9967